=== PATIENT | male | born 1945 | race Caucasian/White ===

== ENCOUNTER 2021-07-08 11:51 | Observation (INO) | payer MEDICARE, OTHER, SELFPAY ==
[2021-07-08] VITALS (26 sets, daily range): BP systolic 88–147; BP diastolic 62–95; PULSE 70–107; RESP 9–18; TEMP 36.3–37.1; O2SAT 97–100; BMI 27.5
--- NOTE | 2021-07-08 12:04 | PC.NURSE ---
Pt was feeling dizzy earlier,denies pain or SOB
[2021-07-08 12:11] LABS: Add Manual Diff / Slide Review NO; Basophils Absolute Auto 100 /uL (0-100); Basophils Percent Auto 0.9 % (0-2); Eosinophils Absolute Auto 100 /uL (0-450); Eosinophils Percent Auto 1.5 % (2-4); Hematocrit 41.9 % (41-53); Hemoglobin 13.9 g/dL (13.5-17.5); Lymphocytes Absolute Auto 2000 /uL (1100-4500); Lymphocytes Percent Auto 21.3 % (25-40); Mean Corpuscular HGB Conc 33.2 % (30-36); Mean Corpuscular Hemoglobin 29.9 PG (26-34); Mean Corpuscular Volume 90.1 fL (80-100); Monocytes Absolute Auto 500 /uL (0-900); Monocytes Percent Auto 5.6 % (3-14); Neutrophils Absolute Auto 6700 /uL (1500-7000); Neutrophils Percent Auto 70.7 % (50-75); Platelet Count 332 X10^3/uL (150-400); Red Blood Cell Count 4.65 X10^6/uL (4.5-5.9); Red Cell Distribution Width 14.2 % (11.6-14.8); White Blood Cell Count 9.5 X10^3/uL (4.5-11.0)
[2021-07-08 12:19] LABS: PTT Partial Thromboplastin Tim 44 SECONDS (26.4-36.2)
[2021-07-08 12:22] LABS: Alanine Aminotransferase 29 IU/L (<50); Albumin 3.7 g/dL (3.5-5.0); Albumin Globulin Ratio 1.3 (1.0-2.8); Alkaline Phosphatase 124 U/L (38-126); Aspartate Aminotransferase 28 IU/L (17-59); BUN Creatinine Ratio 15.6 (6-22); Bilirubin Total 0.6 mg/dL (0.2-1.3); Blood Urea Nitrogen 19 mg/dL (9-20); Calcium 9.2 mg/dL (8.4-10.2); Carbon Dioxide 23 mmol/L (22-32); Chloride 109 mmol/L (98-107); Estimated Glomerular Filt Rate 57.8 mL/min (>60); Globulin 2.9 g/dL (1.7-4.1); Glucose 153 mg/dL (80-110); HEMOLYSIS < 15 (0-50); Potassium 4.2 mmol/L (3.4-5.1); Sodium 142 mmol/L (137-145); Total Protein 6.6 g/dL (6.3-8.2)
--- NOTE | 2021-07-08 12:30 | ED.GIBLEED ---
HPI - GI Bleed General Chief complaint: GI Bleed Stated complaint: GI Bleed Time Seen by Provider: 07/08/21 12:19 Source: patient Mode of arrival: EMS Limitations: no limitations History of Present Illness HPI Narrative: 76-year-old male. History of high blood pressure, atrial fibrillation and TIAs. Is on Pradaxa. Has here for evaluation of multiple episodes of black colored stools and bright red blood. Also having some abdominal discomfort. Some nausea. No vomiting. No prior abdominal surgeries. No urinary symptoms. No fevers. Has never had an abnormal colonoscopy in the past and he was told by the last individual who did his colonoscopy that he no longer needs to have them performed. Is feeling lightheaded. No chest pain. No shortness of breath. No palpitations. Related Data Home Medications Medication Instructions Recorded Confirmed aspirin 81 mg tablet 81 mg PO DAILY 07/08/21 07/08/21 dabigatran etexilate 150 mg 150 mg PO DAILY 07/08/21 07/08/21 capsule (Pradaxa) diltiazem HCl 240 mg 240 mg PO DAILY 07/08/21 07/08/21 capsule,extended release 24 hr losartan 50 mg tablet 50 mg PO DAILY 07/08/21 07/08/21 simvastatin 20 mg tablet 20 mg PO BEDTIME 07/08/21 07/08/21 Allergies Allergy/AdvReac Type Severity Reaction Status Date / Time lisinopril Allergy Verified 07/08/21 12:00 Review of Systems Constitutional Constitutional: Denies fever(s) and Denies headache(s) Eyes Eyes: Reports system reviewed and no additional complaints, except as documented ENT Ears, Nose, Mouth, and Throat: Denies headache(s) Cardiovascular Cardiovascular: Denies chest pain at rest and Denies rapid heart rate Respiratory Respiratory: Reports as per HPI Gastrointestinal Gastrointestinal: Reports as per HPI Genitourinary Genitourinary: Denies hematuria Musculoskeletal Musculoskeletal: Reports system reviewed and no additional complaints, except as documented Integumentary/Breasts Skin/Breast: Reports system reviewed and no additional complaints, except as documented Neurologic Neurologic: Denies headache(s) Psychiatric Psychiatric: Reports system reviewed and no additional complaints, except as documented Endocrine Endocrine: Reports system reviewed and no additional complaints, except as documented Hematologic/Lymphatic On Anticoagulants: Yes Allergic/Immunologic Allergic/Immunologic: Reports system reviewed and no additional complaints, except as documented Patient History Medical History Atrial fibrillation Hypertension TIA (transient ischemic attack) Surgical History History of tonsillectomy Family History Mother Cancer Father No pertinent past medical history Social History household members: spouse Smoking Status: Never smoker alcohol intake: former Smoking Status: Unknown if ever smoked alcohol intake frequency: other Substance Use Type: does not use Exam Initial Vital Signs Initial Vital Signs: Vital Signs Pulse Rate 107 H 07/08/21 11:54 Pulse Oximetry 99 07/08/21 11:54 Const General: cooperative, comfortable and ill appearing HENSC Head: normal to inspection Eyes General: appearance normal, both eyes and all related structures Resp Effort & Inspection: normal respiratory effort Auscultation: clear to auscultation bilaterally Cardio Rate: regular rate Rhythm: abnormal rhythm GI Inspection: normal to inspection and non-distended Palpation: No tender Back/Spine/Pelvis Back: normal to inspection Skin General: no rashes or lesions noted Neuro General: patient alert, patient awake, patient oriented x3 and moves all extremities Extrem General: normal to inspection Psych Appearance: grossly normal and well kempt Course Orders Ordered: ED Orders 07/08/21 12:00 Complete Blood Count AUTO DIFF Stat Comprehensive Metabolic Panel Stat Partial Thromboplastin Time Stat Type and Screen Stat 07/08/21 12:05 EKG-12 Lead Stat 07/08/21 12:44 COVID19 - ADMIT (SUGAR DRIER swab/PCR) Stat 07/08/21 14:11 Hemoglobin and Hematocrit Stat 07/08/21 14:41 Consult to General Surgery Stat Sodium Chloride (Normal Saline 0.9%) 1,000 mls @ 50 mls/hr IV CONT MICHEAL Last Admin: 07/08/21 16:54 Dose: 50 mls/hr Documented by: [email or web address] Morphine Sulfate (Morphine 4 Mg/Ml Inj) 4 mg IV Q4HR PRN PRN Reason: Pain, Severe (7-10) Naloxone HCl (Naloxone 0.4 Mg/Ml Vial) 0.2 mg IV Q2MIN PRN PRN Reason: Opiate Reversal Ondansetron HCl (Ondansetron 4 Mg/2 Ml Inj) 4 mg IV Q8HR PRN PRN Reason: Nausea And Vomiting Pantoprazole Sodium (Pantoprazole 40 Mg Vial) 40 mg IV BID MICHEAL Last Admin: 07/08/21 16:54 Dose: 40 mg Documented by: [email or web address] Discontinued Medications Sodium Chloride (Normal Saline 0.9%) 1,000 mls @ 1,000 mls/hr IV BOLUS ONE Stop: 07/08/21 13:33 Last Infusion: 07/08/21 13:48 Dose: 0 mls/hr Documented by: Admin: 07/08/21 12:38 Dose: 1,000 mls/hr Documented by: SIVA Vital Signs Vital signs: Vital Signs - 8 hr 07/08/21 11:54 07/08/21 11:55 07/08/21 12:00 Temperature 98.0 F Pulse Rate 107 H 100 H 99 H Pulse Rate [Orthostatic Standing] Respiratory Rate 17 13 Blood Pressure 111/69 Blood Pressure [Orthostatic Lying] Blood Pressure [Orthostatic Sitting] Blood Pressure [Orthostatic Standing] Pulse Oximetry 99 99 98 07/08/21 12:15 07/08/21 12:30 07/08/21 12:31 Temperature Pulse Rate 101 H 107 H 89 Pulse Rate [Orthostatic Standing] Respiratory Rate 12 14 Blood Pressure 88/62 L Blood Pressure [Orthostatic Lying] Blood Pressure [Orthostatic Sitting] Blood Pressure [Orthostatic Standing] Pulse Oximetry 99 97 07/08/21 12:35 07/08/21 12:45 07/08/21 12:46 Temperature Pulse Rate 84 84 Pulse Rate [Orthostatic Standing] Respiratory Rate 10 L 13 Blood Pressure 135/74 Blood Pressure [Orthostatic Lying] 88/62 L Blood Pressure [Orthostatic Sitting] Blood Pressure [Orthostatic Standing] Pulse Oximetry 98 98 07/08/21 12:58 07/08/21 13:00 07/08/21 13:01 Temperature Pulse Rate 86 92 H 96 H Pulse Rate [Orthostatic Standing] Respiratory Rate 14 17 Blood Pressure 119/77 110/64 107/63 Blood Pressure [Orthostatic Lying] Blood Pressure [Orthostatic Sitting] Blood Pressure [Orthostatic Standing] Pulse Oximetry 99 99 100 07/08/21 13:02 07/08/21 13:15 07/08/21 13:30 Temperature Pulse Rate 78 77 Pulse Rate [Orthostatic Standing] 78 Respiratory Rate 15 10 L Blood Pressure 122/70 118/73 Blood Pressure [Orthostatic Lying] 119/77 Blood Pressure [Orthostatic Sitting] 110/64 Blood Pressure [Orthostatic Standing] 107/63 Pulse Oximetry 99 98 07/08/21 13:45 07/08/21 14:00 07/08/21 14:15 Temperature Pulse Rate 74 79 79 Pulse Rate [Orthostatic Standing] Respiratory Rate 11 L 11 L 10 L Blood Pressure 121/65 115/71 122/74 Blood Pressure [Orthostatic Lying] Blood Pressure [Orthostatic Sitting] Blood Pressure [Orthostatic Standing] Pulse Oximetry 99 100 100 07/08/21 14:30 Temperature Pulse Rate 80 Pulse Rate [Orthostatic Standing] Respiratory Rate 9 L Blood Pressure 123/74 Blood Pressure [Orthostatic Lying] Blood Pressure [Orthostatic Sitting] Blood Pressure [Orthostatic Standing] Pulse Oximetry 100 MDM - GI Bleed Lab Data Attestation: I reviewed the patient's lab results. Result diagrams: 07/08/21 14:11 07/08/21 12:00 Labs: Lab Results 07/08/21 07/08/21 07/08/21 Range/Units 12:00 12:00 12:00 WBC 9.5 (4.5-11.0) X10^3/uL RBC 4.65 (4.5-5.9) X10^6/uL Hgb 13.9 (13.5-17.5) g/dL Hct 41.9 (41-53) % MCV 90.1 (80-100) fL MCH 29.9 (26-34) PG MCHC 33.2 (30-36) % RDW 14.2 (11.6-14.8) % Plt Count 332 (150-400) X10^3/uL Neut % (Auto) 70.7 (50-75) % Lymph % (Auto) 21.3 L (25-40) % [place] % (Auto) 5.6 (3-14) % Eos % (Auto) 1.5 L (2-4) % Baso % (Auto) 0.9 (0-2) % Neut # (Auto) 6700 (1926-3409) /uL Lymph # (Auto) 2000 (8240-6549) /uL [place] # (Auto) 500 (0-900) /uL Eos # (Auto) 100 (0-450) /uL Baso # (Auto) 100 (0-100) /uL APTT 44 H (26.4-36.2) SECONDS Sodium 142 (137-145) mmol/L Potassium 4.2 (3.4-5.1) mmol/L Chloride 109 H (98-107) mmol/L Carbon Dioxide 23 (22-32) mmol/L BUN 19 (9-20) mg/dL Creatinine 1.22 (0.66-1.25) mg/dL Estimated GFR 57.8 L (>60) mL/min BUN/Creatinine Ratio 15.6 (6-22) Glucose 153 H (80-110) mg/dL Calcium 9.2 (8.4-10.2) mg/dL Total Bilirubin 0.6 (0.2-1.3) mg/dL AST 28 (17-59) IU/L ALT 29 (<50) IU/L Alkaline Phosphatase 124 (38-126) U/L Total Protein 6.6 (6.3-8.2) g/dL Albumin 3.7 (3.5-5.0) g/dL Globulin 2.9 (1.7-4.1) g/dL Albumin/Globulin Ratio 1.3 (1.0-2.8) SARS-CoV-2 (PCR) (Negative) Blood Type Antibody Screen 07/08/21 07/08/21 07/08/21 Range/Units 12:00 12:44 14:11 WBC (4.5-11.0) X10^3/uL RBC (4.5-5.9) X10^6/uL Hgb 12.6 L (13.5-17.5) g/dL Hct 38.0 L (41-53) % MCV (80-100) fL MCH (26-34) PG MCHC (30-36) % RDW (11.6-14.8) % Plt Count (150-400) X10^3/uL Neut % (Auto) (50-75) % Lymph % (Auto) (25-40) % [place] % (Auto) (3-14) % Eos % (Auto) (2-4) % Baso % (Auto) (0-2) % Neut # (Auto) (4513-0301) /uL Lymph # (Auto) (6058-5181) /uL [place] # (Auto) (0-900) /uL Eos # (Auto) (0-450) /uL Baso # (Auto) (0-100) /uL APTT (26.4-36.2) SECONDS Sodium (137-145) mmol/L Potassium (3.4-5.1) mmol/L Chloride (98-107) mmol/L Carbon Dioxide (22-32) mmol/L BUN (9-20) mg/dL Creatinine (0.66-1.25) mg/dL Estimated GFR (>60) mL/min BUN/Creatinine Ratio (6-22) Glucose (80-110) mg/dL Calcium (8.4-10.2) mg/dL Total Bilirubin (0.2-1.3) mg/dL AST (17-59) IU/L ALT (<50) IU/L Alkaline Phosphatase (38-126) U/L Total Protein (6.3-8.2) g/dL Albumin (3.5-5.0) g/dL Globulin (1.7-4.1) g/dL Albumin/Globulin Ratio (1.0-2.8) SARS-CoV-2 (PCR) Negative (Negative) Blood Type O Positive Antibody Screen Negative Point of Care Testing Stool Occult Blood Positive ECG Data Attestation: I personally reviewed and interpreted this ECG as follows: Interpretation: Atrial fibrillation Ventricular rate 93 Left axis deviation Right bundle branch block No ST T wave changes MDM Narrative Medical decision making narrative: Patient was diaphoretic and looked poorly upon arrival. Had 1 blood pressure of a systolic less than 80 but this improved with fluids. Patient was in AFib but he has a history of AFib. Was tachycardic upon arrival. Received 1 L fluids and the patient felt better, blood pressure improved, diaphoresis improved. He was obviously having blood in his stool. H&H dropped slightly during his stay here in the ER. Given his presentation, his labs, vital signs patient does require admission the hospital for further evaluation and treatment. We will hold on any reversal of his Pradaxa for now. Discussed the case with Dr. Sands with General surgery who will see the patient as a consultation. Discussed the case with Dr. Madrid with internal medicine who will admit for further evaluation and treatment. Discussed the need for admission with the patient. He expressed understanding and agreement. Discharge Plan Departure Patient Disposition: Admitted as Observation Clinical Impression: Acute GI bleeding, Atrial fibrillation Admit Date/Time: 07/08/21 14:43 Admit Provider: Wilfredo Madrid
--- NOTE | 2021-07-08 12:35 | PC.NURSE ---
Pts bp decreased,pt diaphoretic. Dr Silver diaz.
[2021-07-08] MEDS: SODIUM CHLORIDE 0.9% 1,000 ML 1000 ML IV (12:38)
[2021-07-08 14:00] LABS: COVID19 - ADMIT (NP swab/PCR) Negative (Negative)
[2021-07-08 14:18] LABS: Hemoglobin 12.6 g/dL (13.5-17.5)
--- NOTE | 2021-07-08 15:35 | PC.NURSE ---
Report called to [facility] @[phone], still waiting on room.
--- NOTE | 2021-07-08 16:23 | P.HP_ITS ---
History of Present Illness History of Present Illness Date Patient Seen: 07/08/21 Time Patient Seen: 16:23 Chief complaint: GI Bleed Narrative: This is a 76-year-old male with a past medical history of hypertension, hyperlipidemia, paroxysmal AFib on Pradaxa, and 3 prior TIAs who presented to the emergency room via EMS after multiple melanotic movements. Patient states that he has had only minimal suprapubic type cramping abdominal pain that does not radiate, but denies any pain currently. He denies any nausea, vomiting, chest pain, shortness of breath. Upon arrival to the emergency room he states he felt mildly dizzy and slightly diaphoretic but this improved with fluids and treatments in the emergency room. He denies any recent fevers, chills. His last colonoscopy he thinks was a couple of years ago, he does not recall the results. He was prepping for a colonoscopy approximately a year ago he states when he had a TIA. His doctor after that TIA stated that he no longer needed any additional colonoscopies. He has never had an EGD. He denies any bleeding in the past. His last dose of Pradaxa was yesterday morning. In the emergency room, the patient was mildly hypertensive but the remainder of his vital signs were unremarkable. Initial hemoglobin was 13.9 and dropped to 12.6 a few hours later, although this was notably after some IV fluids were given. His creatinine was 1.22, but there is no known baseline. The remainder of his chemistry panel was unremarkable. COVID-19 testing was negative. Patient was typed and screened. General surgery was contacted in the emergency room and Dr. Sands agreed to consultation. Patient will be NPO pending surgical evaluation. His Pradaxa was held. Admitted to Medicine under observat ion status. Patient History Medical History Atrial fibrillation Hypertension TIA (transient ischemic attack) Surgical History History of tonsillectomy Family & Social History Family History Mother Cancer Father No pertinent past medical history Safety & Behavioral: Feels Safe in Current Yes Environment Been Physically Hurt or No Threatened By a Person Tobacco & Substance use: Smoking Status Unknown if ever smoked alcohol intake frequency other Substance Use Type does not use Meds Home Medications and Allergies Home Medications Medication Instructions Recorded Confirmed Type aspirin 81 mg tablet 81 mg PO DAILY 07/08/21 07/08/21 History dabigatran etexilate 150 mg 150 mg PO DAILY 07/08/21 07/08/21 History capsule (Pradaxa) diltiazem HCl 240 mg 240 mg PO DAILY 07/08/21 07/08/21 History capsule,extended release 24 hr losartan 50 mg tablet 50 mg PO DAILY 07/08/21 07/08/21 History simvastatin 20 mg tablet 20 mg PO BEDTIME 07/08/21 07/08/21 History Allergies Allergy/AdvReac Type Severity Reaction Status Date / Time lisinopril Allergy Verified 07/08/21 12:00 Review of Systems Review of Systems Narrative: All other systems reviewed with the patient and are negative unless otherwise stated. Exam Vital Signs (past 8 hours): - 07/08/21 11:54 07/08/21 11:55 07/08/21 12:00 Temperature 98.0 F Pulse Rate 107 H 100 H 99 H Pulse Rate [Orthostatic Standing] Respiratory Rate 17 13 Blood Pressure 111/69 Blood Pressure [Orthostatic Lying] Blood Pressure [Orthostatic Sitting] Blood Pressure [Orthostatic Standing] Pulse Oximetry 99 99 98 07/08/21 12:15 07/08/21 12:30 07/08/21 12:31 Temperature Pulse Rate 101 H 107 H 89 Pulse Rate [Orthostatic Standing] Respiratory Rate 12 14 Blood Pressure 88/62 L Blood Pressure [Orthostatic Lying] Blood Pressure [Orthostatic Sitting] Blood Pressure [Orthostatic Standing] Pulse Oximetry 99 97 07/08/21 12:35 07/08/21 12:45 07/08/21 12:46 Temperature Pulse Rate 84 84 Pulse Rate [Orthostatic Standing] Respiratory Rate 10 L 13 Blood Pressure 135/74 Blood Pressure [Orthostatic Lying] 88/62 L Blood Pressure [Orthostatic Sitting] Blood Pressure [Orthostatic Standing] Pulse Oximetry 98 98 07/08/21 12:58 07/08/21 13:00 07/08/21 13:01 Temperature Pulse Rate 86 92 H 96 H Pulse Rate [Orthostatic Standing] Respiratory Rate 14 17 Blood Pressure 119/77 110/64 107/63 Blood Pressure [Orthostatic Lying] Blood Pressure [Orthostatic Sitting] Blood Pressure [Orthostatic Standing] Pulse Oximetry 99 99 100 07/08/21 13:02 07/08/21 13:15 07/08/21 13:30 Temperature Pulse Rate 78 77 Pulse Rate [Orthostatic Standing] 78 Respiratory Rate 15 10 L Blood Pressure 122/70 118/73 Blood Pressure [Orthostatic Lying] 119/77 Blood Pressure [Orthostatic Sitting] 110/64 Blood Pressure [Orthostatic Standing] 107/63 Pulse Oximetry 99 98 07/08/21 13:45 07/08/21 14:00 07/08/21 14:15 Temperature Pulse Rate 74 79 79 Pulse Rate [Orthostatic Standing] Respiratory Rate 11 L 11 L 10 L Blood Pressure 121/65 115/71 122/74 Blood Pressure [Orthostatic Lying] Blood Pressure [Orthostatic Sitting] Blood Pressure [Orthostatic Standing] Pulse Oximetry 99 100 100 07/08/21 14:30 07/08/21 14:45 07/08/21 15:00 Temperature Pulse Rate 80 70 77 Pulse Rate [Orthostatic Standing] Respiratory Rate 9 L 9 L 10 L Blood Pressure 123/74 113/69 122/72 Blood Pressure [Orthostatic Lying] Blood Pressure [Orthostatic Sitting] Blood Pressure [Orthostatic Standing] Pulse Oximetry 100 100 98 07/08/21 15:15 07/08/21 16:00 Temperature 97.4 F L Pulse Rate 76 86 Pulse Rate [Orthostatic Standing] Respiratory Rate 10 L 18 Blood Pressure 115/76 147/95 H Blood Pressure [Orthostatic Lying] Blood Pressure [Orthostatic Sitting] Blood Pressure [Orthostatic Standing] Pulse Oximetry 99 100 Oxygen Delivery Method Room Air Narrative Exam Narrative: GENERAL APPEARANCE: Well developed, well nourished, in no acute distress. SKIN: Inspection of the skin reveals no rashes, ulcerations or petechiae. HEENT: Normocephalic atraumatic, extraocular muscles are intact, oropharynx is clear and mucous membranes are moist, neck is supple without adenopathy NECK: Supple and symmetric. There was no thyroid enlargement, and no tenderness, or masses were felt. CHEST: Normal AP diameter and normal contour without any kyphoscoliosis. LUNGS: Auscultation of the lungs revealed no wheezes, rhonchi, or rales. CARDIOVASCULAR: There was a regular rate and rhythm without any murmurs, gallops, rubs. Peripheral pulses were 2+ and symmetric. ABDOMEN: Soft and nontender with normal bowel sounds. No ascites was noted. MUSCULOSKELETAL: There was no tenderness or effusions noted. Muscle strength and tone were normal. EXTREMITIES: No cyanosis, clubbing or edema. NEUROLOGIC: Alert and oriented x 3. Normal affect. Gait was normal. Strength is +5/5 in the Upper Extremities and Lower Extremities Bilaterally. Sensation to touch was normal. Objective Labs Result Diagrams: 07/08/21 14:11 07/08/21 12:00 Labs: Laboratory Results - last 24 hr 07/08/21 07/08/21 07/08/21 12:00 12:00 12:00 WBC 9.5 RBC 4.65 Hgb 13.9 Hct 41.9 MCV 90.1 MCH 29.9 MCHC 33.2 RDW 14.2 Plt Count 332 Neut % (Auto) 70.7 Lymph % (Auto) 21.3 L [place] % (Auto) 5.6 Eos % (Auto) 1.5 L Baso % (Auto) 0.9 Neut # (Auto) 6700 Lymph # (Auto) 2000 [place] # (Auto) 500 Eos # (Auto) 100 Baso # (Auto) 100 APTT 44 H Sodium 142 Potassium 4.2 Chloride 109 H Carbon Dioxide 23 BUN 19 Creatinine 1.22 Estimated GFR 57.8 L BUN/Creatinine Ratio 15.6 Glucose 153 H Calcium 9.2 Total Bilirubin 0.6 AST 28 ALT 29 Alkaline Phosphatase 124 Total Protein 6.6 Albumin 3.7 Globulin 2.9 Albumin/Globulin Ratio 1.3 SARS-CoV-2 (PCR) Blood Type Antibody Screen 07/08/21 07/08/21 07/08/21 12:00 12:44 14:11 WBC RBC Hgb 12.6 L Hct 38.0 L MCV MCH MCHC RDW Plt Count Neut % (Auto) Lymph % (Auto) [place] % (Auto) Eos % (Auto) Baso % (Auto) Neut # (Auto) Lymph # (Auto) [place] # (Auto) Eos # (Auto) Baso # (Auto) APTT Sodium Potassium Chloride Carbon Dioxide BUN Creatinine Estimated GFR BUN/Creatinine Ratio Glucose Calcium Total Bilirubin AST ALT Alkaline Phosphatase Total Protein Albumin Globulin Albumin/Globulin Ratio SARS-CoV-2 (PCR) Negative Blood Type O Positive Antibody Screen Negative Assessment & Plan Assessment & Plan narrative: This is a 76-year-old male with a past medical history of hypertension, hyperlipidemia, paroxysmal AFib on Pradaxa, and 3 prior TIAs who presented to the emergency room via EMS after multiple melanotic movements. Admitted for Gi bleeding. 1. Acute blood loss anemia secondary to GI bleeding with melena, present on admission - NPO pending surgical evaluation. continue IVF. Hg from 13.9 to 12.6 on repeat. normal MCV. - continue to follow h/h - start IV PPI BID, Given melena unclear if upper or lower bleeding. BUN is normal. - Dr. Sands of General Surgery consulted via the ER. 2. presumed paroxysmal atrial fibrillation - will check EKG, no current chest pain or shortness of breath. - Tele ordered given need to hold PO home medications. Can give IV dilt if RVR. 3. HTN, chronic - hold home medications currently of active bleeding. 4. HLD, chronic - hold statin. 5. history of multiple TIA - held pradaxa, statin, as asa given bleeding for now. code: Full as discussed with the patient, surrogate decision maker he states is his . dispo: Admit under observation pending Hg trend. DVT: SCDs given bleeding. hold home asa and pradaxa. I have utilized all available immediate resources to obtain, update, or review the patient's current medications. COVID-19 COVID-19 status: Negative Quality VTE Deep Vein Thrombosis/Pulmonary Embolism Present on Admission: No MIPS - Admit I confirm the patient?s Advance Care Plan is present, Code status is documented, Surrogate decision maker is in patient?s record [If Yes, STOP here]: Yes
[2021-07-08] MEDS: PANTOPRAZOLE 40 MG VIAL IV ×2 (16:54→20:56)
[2021-07-08] MEDS: SODIUM CHLORIDE 0.9% 1,000 ML 50 ML IV (16:54)
[2021-07-08 20:12] LABS: Hematocrit 37.3 % (41-53); Hemoglobin 12.3 g/dL (13.5-17.5)
[2021-07-09 00:30] VITALS: O2SAT 98
[2021-07-09 00:38] VITALS: BP 140/91; PULSE 69; RESP 17; TEMP 36.5; O2SAT 98
[2021-07-09 05:40] VITALS: BP 150/92; PULSE 81; RESP 18; TEMP 36.7; O2SAT 98
[2021-07-09 06:30] LABS: Add Manual Diff / Slide Review NO; Basophils Absolute Auto 100 /uL (0-100); Basophils Percent Auto 1.1 % (0-2); Eosinophils Absolute Auto 200 /uL (0-450); Eosinophils Percent Auto 1.7 % (2-4); Hemoglobin 12.6 g/dL (13.5-17.5); Lymphocytes Absolute Auto 3400 /uL (1100-4500); Lymphocytes Percent Auto 33.8 % (25-40); Mean Corpuscular HGB Conc 33.1 % (30-36); Mean Corpuscular Hemoglobin 29.6 PG (26-34); Mean Corpuscular Volume 89.5 fL (80-100); Monocytes Absolute Auto 600 /uL (0-900); Monocytes Percent Auto 5.6 % (3-14); Neutrophils Absolute Auto 5800 /uL (1500-7000); Neutrophils Percent Auto 57.8 % (50-75); Platelet Count 314 X10^3/uL (150-400); Red Blood Cell Count 4.24 X10^6/uL (4.5-5.9); White Blood Cell Count 10.1 X10^3/uL (4.5-11.0)
[2021-07-09 06:46] LABS: BUN Creatinine Ratio 18.6 (6-22); Blood Urea Nitrogen 19 mg/dL (9-20); Calcium 8.8 mg/dL (8.4-10.2); Carbon Dioxide 25 mmol/L (22-32); Chloride 110 mmol/L (98-107); Estimated Glomerular Filt Rate > 60.0 mL/min (>60); Glucose 97 mg/dL (80-110); HEMOLYSIS < 15 (0-50); Sodium 141 mmol/L (137-145)
[2021-07-09 08:37] VITALS: BP 143/96; PULSE 84; RESP 16; TEMP 36.3; O2SAT 98
--- NOTE | 2021-07-09 08:53 | P.DS_ITS ---
History of Present Illness History of Present Illness Chief complaint: GI Bleed Narrative: This is a 76-year-old male with a past medical history of hypertension, hyperlipidemia, paroxysmal AFib on Pradaxa, and 3 prior TIAs who presented to the emergency room via EMS after multiple melanotic movements. Patient states that he has had only minimal suprapubic type cramping abdominal pain that does not radiate, but denies any pain currently. He denies any nausea, vomiting, chest pain, shortness of breath. Upon arrival to the emergency room he states he felt mildly dizzy and slightly diaphoretic but this improved with fluids and treatments in the emergency room. He denies any recent fevers, chills. His last colonoscopy he thinks was a couple of years ago, he does not recall the results. He was prepping for a colonoscopy approximately a year ago he states when he had a TIA. His doctor after that TIA stated that he no longer needed any additional colonoscopies. He has never had an EGD. He denies any bleeding in the past. His last dose of Pradaxa was yesterday morning. In the emergency room, the patient was mildly hypertensive but the remainder of his vital signs were unremarkable. Initial hemoglobin was 13.9 and dropped to 12.6 a few hours later, although this was notably after some IV fluids were given. His creatinine was 1.22, but there is no known baseline. The remainder of his chemistry panel was unremarkable. COVID-19 testing was negative. Patient was typed and screened. General surgery was contacted in the emergency room and Dr. Sands agreed to consultation. Patient will be NPO pending surgical evaluation. His Pradaxa was held. Admitted to Medicine under observation status. Discharge Providers Provider Date of admission: 07/08/21 14:43 Discharge Date: 07/09/21 Primary care physician: Joel López MD Consults: 07/08/21 14:41 Consult to General Surgery Stat Comment: Consulting Provider: Chayito Sands Reason for consultation: GI bleed Has provider been notified: Yes Discharge provider: Constance Webb MD Summary Hospital Course Discharge Diagnosis: 1. Lower GI Bleed on Pradaxa-H/H stable , 12/38.6, As patient on Pradaxa need to wait 2 days before procedure, Patient will discharge home and return for C-scope 2. History of TIA 3. Hypertension 4. Atrial Fibrillation Hospital Course: Patient admitted for rectal bleeding. He had no further bleeding after admission. Patient had no melena or hemetesis. He was having some gas. He had no complaints of abdominal pain, shortness of breath, or nausea. Patient was notified that given his stable H/H and no further blood loss that the colonoscopy would be deferred until another 48 hours off the Pradaxa. Patient was agreeable and will discharge home. Patient was seen by Dr. Sands who will arrange for outpatient colonoscopy to occur either Wednesday. Patient was deemed appropriate for discharge home. Status at Discharge Cognitive/behavioral status at discharge: oriented Functional status at discharge: independent ambulation Overall status at discharge: patient is back to baseline Exam Vital Signs (past 8 hours): - 07/09/21 05:40 07/09/21 08:37 Temperature 98.1 F 97.4 F L Pulse Rate 81 84 Respiratory Rate 18 16 Blood Pressure 150/92 H 143/96 H Pulse Oximetry 98 98 Oxygen Delivery Method Room Air Oxygen Flow Rate 0 Narrative Exam Narrative: pleasant gentleman in no acute distress Resp Other: Lungs: clear to ausculation Cardio Other: Irregularly Irregular, nl Sl S2 2/6 HERACLIO GI Other: Abd: soft/ non tender/ non distended Objective Labs Result Diagrams: 07/09/21 05:42 07/09/21 05:42 Labs: Laboratory Results - last 24 hr 07/08/21 07/08/21 07/08/21 12:00 12:00 12:00 WBC 9.5 RBC 4.65 Hgb 13.9 Hct 41.9 MCV 90.1 MCH 29.9 MCHC 33.2 RDW 14.2 Plt Count 332 Neut % (Auto) 70.7 Lymph % (Auto) 21.3 L [place] % (Auto) 5.6 Eos % (Auto) 1.5 L Baso % (Auto) 0.9 Neut # (Auto) 6700 Lymph # (Auto) 2000 [place] # (Auto) 500 Eos # (Auto) 100 Baso # (Auto) 100 APTT 44 H Sodium 142 Potassium 4.2 Chloride 109 H Carbon Dioxide 23 BUN 19 Creatinine 1.22 Estimated GFR 57.8 L BUN/Creatinine Ratio 15.6 Glucose 153 H Calcium 9.2 Total Bilirubin 0.6 AST 28 ALT 29 Alkaline Phosphatase 124 Total Protein 6.6 Albumin 3.7 Globulin 2.9 Albumin/Globulin Ratio 1.3 SARS-CoV-2 (PCR) Blood Type Antibody Screen 07/08/21 07/08/21 07/08/21 12:00 12:44 14:11 WBC RBC Hgb 12.6 L Hct 38.0 L MCV MCH MCHC RDW Plt Count Neut % (Auto) Lymph % (Auto) [place] % (Auto) Eos % (Auto) Baso % (Auto) Neut # (Auto) Lymph # (Auto) [place] # (Auto) Eos # (Auto) Baso # (Auto) APTT Sodium Potassium Chloride Carbon Dioxide BUN Creatinine Estimated GFR BUN/Creatinine Ratio Glucose Calcium Total Bilirubin AST ALT Alkaline Phosphatase Total Protein Albumin Globulin Albumin/Globulin Ratio SARS-CoV-2 (PCR) Negative Blood Type O Positive Antibody Screen Negative 07/08/21 07/09/21 07/09/21 19:49 05:42 05:42 WBC 10.1 RBC 4.24 L Hgb 12.3 L 12.6 L Hct 37.3 L 38.0 L MCV 89.5 MCH 29.6 MCHC 33.1 RDW 14.0 Plt Count 314 Neut % (Auto) 57.8 Lymph % (Auto) 33.8 [place] % (Auto) 5.6 Eos % (Auto) 1.7 L Baso % (Auto) 1.1 Neut # (Auto) 5800 Lymph # (Auto) 3400 [place] # (Auto) 600 Eos # (Auto) 200 Baso # (Auto) 100 APTT Sodium 141 Potassium 4.0 Chloride 110 H Carbon Dioxide 25 BUN 19 Creatinine 1.02 Estimated GFR > 60.0 BUN/Creatinine Ratio 18.6 Glucose 97 Calcium 8.8 Total Bilirubin AST ALT Alkaline Phosphatase Total Protein Albumin Globulin Albumin/Globulin Ratio SARS-CoV-2 (PCR) Blood Type Antibody Screen [facility] Medical History Atrial fibrillation Hypertension TIA (transient ischemic attack) Surgical History History of tonsillectomy Family History Mother Cancer Father No pertinent past medical history Social History household members: spouse Smoking Status: Never smoker alcohol intake: former Discharge Assessment & Plan Assessment and Plan Assessment: Lower GI Bleed on Pradaxa Atrial Fibrillation Hypertension History of TIA Plan of Treatment: Discharge home today. Hold Pradaxa until Colonoscopy Dr. Sands to arrange outpatient Colonoscopy. Discharge Plan Discharge Plan Patient Disposition: Home Provider Discharge Comment: hold pradaxa and aspirin until colonoscopy next week Nursing Discharge Comment: Follow instruction sheets given to you by Dr. Sandss office. Your colonoscopy has been schedule for 07/14/21 with an estimated check in time of 12:00pm. The surgical department will call you the day before to confirm arrival time. Follow instructions for your covid test 07/11/21. If you have any questions call [facility] [phone]. Discharge orders & Medications Prescriptions: Continued losartan 50 mg tablet 50 mg PO DAILY RF: 0 diltiazem HCl 240 mg capsule,extended release 24hr 240 mg PO DAILY RF: 0 simvastatin 20 mg tablet 20 mg PO BEDTIME RF: 0 Discontinued aspirin 81 mg Tablet 81 mg PO DAILY RF: 0 Pradaxa 150 mg capsule 150 mg PO DAILY RF: 0 Follow up/Referrals: Joel López MD [Primary Care Provider] - Visit Report/Discharge Packet Instructions: Colonoscopy, Gastrointestinal Bleeding Discharge Data Primary Care Provider: Jole López Attending Provider: Wilfredo Madrid VTE Deep Vein Thrombosis/Pulmonary Embolism Present on Admission: No
[2021-07-09] MEDS: PANTOPRAZOLE 40 MG VIAL IV (08:57)
--- NOTE | 2021-07-09 09:12 | PM.CN ---
History of Present Illness Consult details Date Patient Seen: 07/09/21 Time Patient Seen: 09:12 Chief complaint: GI Bleed Reason for consult: GI bleed with melonic stools Requesting provider: Constance Webb Narrative: Admitted over night for new onset blood in stool, large maroon stools at home. None here. On Pradaxa which he last took Wednesday. Pradaxa is for Afib. No abdominal pain, no previous episodes. Stable over night. Meds Home Medications and Allergies Home Medications Medication Instructions Recorded Confirmed Type aspirin 81 mg tablet 81 mg PO DAILY 07/08/21 07/08/21 History dabigatran etexilate 150 mg 150 mg PO DAILY 07/08/21 07/08/21 History capsule (Pradaxa) diltiazem HCl 240 mg 240 mg PO DAILY 07/08/21 07/08/21 History capsule,extended release 24 hr losartan 50 mg tablet 50 mg PO DAILY 07/08/21 07/08/21 History simvastatin 20 mg tablet 20 mg PO BEDTIME 07/08/21 07/08/21 History Allergies Allergy/AdvReac Type Severity Reaction Status Date / Time lisinopril Allergy Verified 07/08/21 12:00 Review of Systems Review of Systems ROS: Yes All systems reviewed with the patient and are negative except as otherwise documented Exam Vital Signs (past 8 hours): - 07/09/21 05:40 07/09/21 08:37 Temperature 98.1 F 97.4 F L Pulse Rate 81 84 Respiratory Rate 18 16 Blood Pressure 150/92 H 143/96 H Pulse Oximetry 98 98 Oxygen Delivery Method Room Air Oxygen Flow Rate 0 Const General: cooperative and healthy appearing Nutritional Appearance: average body habitus Orientation: alert and oriented x3 HENMT Head: normal to inspection, normocephalic and atraumatic Eyes Sclera: sclerae normal Neck Neck: trachea midline Chest Chest: normal inspection of the chest Resp Effort & Inspection: normal respiratory effort and able to speak in complete sentences Cardio Rate: regular rate Rhythm: abnormal rhythm GI Inspection: normal to inspection Palpation: soft Skin Other: scarring of nose presumed from skin cancer. Neuro General: patient alert and patient oriented x3 Psych Appearance: grossly normal Judgment: judgment good Objective Labs Result Diagrams: 07/09/21 05:42 07/09/21 05:42 Labs: Laboratory Results - last 24 hr 0807/08/21 07/08/21 12:00 12:00 12:00 WBC 9.5 RBC 4.65 Hgb 13.9 Hct 41.9 MCV 90.1 MCH 29.9 MCHC 33.2 RDW 14.2 Plt Count 332 Neut % (Auto) 70.7 Lymph % (Auto) 21.3 L [place] % (Auto) 5.6 Eos % (Auto) 1.5 L Baso % (Auto) 0.9 Neut # (Auto) 6700 Lymph # (Auto) 2000 [place] # (Auto) 500 Eos # (Auto) 100 Baso # (Auto) 100 APTT 44 H Sodium 142 Potassium 4.2 Chloride 109 H Carbon Dioxide 23 BUN 19 Creatinine 1.22 Estimated GFR 57.8 L BUN/Creatinine Ratio 15.6 Glucose 153 H Calcium 9.2 Total Bilirubin 0.6 AST 28 ALT 29 Alkaline Phosphatase 124 Total Protein 6.6 Albumin 3.7 Globulin 2.9 Albumin/Globulin Ratio 1.3 SARS-CoV-2 (PCR) Blood Type Antibody Screen 07/08/21 07/08/21 07/08/21 12:00 12:44 14:11 WBC RBC Hgb 12.6 L Hct 38.0 L MCV MCH MCHC RDW Plt Count Neut % (Auto) Lymph % (Auto) [place] % (Auto) Eos % (Auto) Baso % (Auto) Neut # (Auto) Lymph # (Auto) [place] # (Auto) Eos # (Auto) Baso # (Auto) APTT Sodium Potassium Chloride Carbon Dioxide BUN Creatinine Estimated GFR BUN/Creatinine Ratio Glucose Calcium Total Bilirubin AST ALT Alkaline Phosphatase Total Protein Albumin Globulin Albumin/Globulin Ratio SARS-CoV-2 (PCR) Negative Blood Type O Positive Antibody Screen Negative 07/08/21 07/09/21 07/09/21 19:49 05:42 05:42 WBC 10.1 RBC 4.24 L Hgb 12.3 L 12.6 L Hct 37.3 L 38.0 L MCV 89.5 MCH 29.6 MCHC 33.1 RDW 14.0 Plt Count 314 Neut % (Auto) 57.8 Lymph % (Auto) 33.8 [place] % (Auto) 5.6 Eos % (Auto) 1.7 L Baso % (Auto) 1.1 Neut # (Auto) 5800 Lymph # (Auto) 3400 [place] # (Auto) 600 Eos # (Auto) 200 Baso # (Auto) 100 APTT Sodium 141 Potassium 4.0 Chloride 110 H Carbon Dioxide 25 BUN 19 Creatinine 1.02 Estimated GFR > 60.0 BUN/Creatinine Ratio 18.6 Glucose 97 Calcium 8.8 Total Bilirubin AST ALT Alkaline Phosphatase Total Protein Albumin Globulin Albumin/Globulin Ratio SARS-CoV-2 (PCR) Blood Type Antibody Screen Assessment & Plan Assessment & Plan narrative: Patient is stable clinically. No further bleeding. Given the need for delay due to Pradaxa, he will go home and return for colonoscopy, EGD on Wednesday. COVID-19 COVID-19 status: Negative Time Spent With Patient Time with patient: 15-24 minutes
--- NOTE | 2021-07-09 10:48 | CM.DANOTE ---
Patient is a 76 yo male who was admitted on 07/08/21 for GI Bleed. Pt has [employer] for insurance and his PCP is Dr. Joel López. EMR was reviewed. Per MD, pt with hx of 3 TIAs and now admitted for GI Bleed and is NPO awaiting Surgeon Consult. Per Surgeon, pt to have colonoscopy but can happen outpt and pt to d/c home today with prep for colonoscopy in 2 days as an outpt. SW met bedside with pt and RN present and confirm that pt resides in [facility] now and is retired and independent at baseline with ADLs and spouse able to provide transport home today. Pt states his spouse is his DPOA and no hx of HH or SNF. Pt states he used to live in [place] with his mother as he was her primary CG but since his mom he and his moved to [facility] but they [facility] and his dentist is still in [place] where they used to live. Pt agreeable with outpt colonoscopy and d/c home today. No concerns at this time. Plan: SW to follow for plan of pt d/c home today via spouse POV and outpt colonoscopy scheduled with Surgeon in 2 days. 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 Yes Advance Directives on File No History Provided By Patient,Medical Record Has Patient been admitted in last 30 No days? Prior Living Arrangements House Household Members spouse Type of transporation used prior to Drives own vehicle admit Independent with ADL's Yes Is patient alert and oriented? Yes Caregiver for Another No Barriers to Discharge No Discharge Plan Home Transportation Arrangement Spouse able to transport home today Referrals Initiated None needed Whiteboard Updated in Patient Room with Yes name and ext. # of Electrical Unit Rebuilder Review Status In Process Please Provide Date Initial DC 07/09/21 Assessment Was Performed Next Review Type Continued Stay Review
--- NOTE | 2021-07-09 13:14 | PC.NURSE ---
Discharge: Pt feels ready to d/c to home. Received instructions from MD's office for up coming colonoscopy. Understands he needs to hold his anticoagulants until colonoscopy completed. Reviewed discharge packets. Has had no loose or bloody stools. Questions answered. Pt d/c home via auto with spouse.
--- NOTE | 2021-07-16 14:20 | PC.NURSE ---
Late Entry; NS infusion initiated 07/08 at 16:54, stopped by discharge order 07/09 at 10:44.
== END 2021-07-09 12:05 | disposition home or self-care (01) ==
LOC: ED 14:42 → AC 14:44
PROVIDERS: Admitting Provider Internal Medicine; Emergency Provider Emergency Medicine; PCP Family Medicine; Referring Provider Emergency Medicine; Visit Provider Internal Medicine
DX: K92.1 Melena (principal); D62 Acute posthemorrhagic anemia; I48.0 Paroxysmal atrial fibrillation; Z79.01 Long term (current) use of anticoagulants; Z79.82 Long term (current) use of aspirin; I10 Essential (primary) hypertension; E78.5 Hyperlipidemia, unspecified; Z86.73 Personal history of transient ischemic attack (TIA), and cerebral infarction without residual deficits; Z20.822 Contact with and (suspected) exposure to COVID-19
CPT/HCPCS: 36415; 80048; 80053; 82272; 85014; 85018; 85025; 85730; 86850; 86900; 86901; 87635; 93005; 96361; 96374; 96376; 99224; 99284; C9803; G0378; C9113

== ENCOUNTER → 2021-07-11 15:55 | Outpatient (CLI) | payer MEDICARE, OTHER, SELFPAY ==
[2021-07-08 17:00] VITALS: BMI 27.5
[2021-07-11 16:45] LABS: COVID19 -Nasal RAPID Negative (Negative)
== END ==
PROVIDERS: PCP Family Medicine; Visit Provider Surgery
DX: Z01.812 Encounter for preprocedural laboratory examination (principal); Z20.822 Contact with and (suspected) exposure to COVID-19
CPT/HCPCS: 87635; C9803

== ENCOUNTER 2021-07-14 11:55 | Day surgery (SDC) | payer MEDICARE, OTHER, SELFPAY ==
[2021-07-08 17:00] VITALS: BMI 27.5
[2021-07-14] VITALS (11 sets, daily range): BP systolic 86–140; BP diastolic 51–90; PULSE 60–101; RESP 12–16; TEMP 36.3–36.6; O2SAT 92–99; BMI 25.8
--- NOTE | 2021-07-14 | PATH_ITS ---
[facility] Accession Number: [id number] . 01 Material submitted: . stomach - STOMACH BIOPSY . 01 Clinical history: . STOMACH BIOPSY FOR H.PYLORI . 02 Diagnosis: Stomach, Biopsy: Gastric antral mucosa with no diagnostic abnormality. No evidence of Helicobacter organisms on H/E stain. Negative for intestinal metaplasia. Negative for dysplasia and malignancy. MRV 07/16/2021 1003 Local . 02 Electronically signed: . Rigoberto Huerta MD, PhD, Pathologist NPI- [id number] . 01 Gross description: . STOMACH BIOPSY: Received in formalin is 1 fragment(s) of lawrence, soft tissue measuring 0.3 x 0.2 x 0.2 cm submitted entirely in 1 cassette(s) /SHANA 07/15/2021 0333 Local . 02 Pathologist provided ICD-10: K92.2 . 02 CPT . 776674 Performed at: 01 [facility] [address] [place] [address], [place], [place] [id number] MD Will Barragan MD Phone: [phone] Performed at: 02 [facility] [address] [place], [place] [id number] MD Karlee Pink MD Phone: [phone]
[2021-07-14] MEDS: LACTATED RINGERS 1,000 ML 42 ML IV (12:33)
--- NOTE | 2021-07-14 13:45 | PM.PREOP ---
Pre-operative Note COVID-19 COVID-19 status: Negative Interval Note History & Physical reviewed/Exam performed by Physician: Yes Changes to H&P: No ASA Class (for procedural sedation): II
--- NOTE | 2021-07-14 13:48 | PM.OP.ENDO ---
Operative Date/Time/Diagnoses Date of procedure: 07/14/21 Time of procedure: 13:48 Pre-op diagnosis: GI bleed Post-op diagnosis: same Procedure & Clinicians Study performed: EGD Same procedure as scheduled: Yes Indications: gi bleed Surgeon: Chayito Sands Procedure Notes SCOAP/Timeout: done Procedure in detail: Prep diagnosis: GI bleed with dark stool, on anticoagulation Postop diagnosis: Same Operative procedure: EGD with anesthetic, moderate sedation. Cold forceps biopsy Indications: Patient was admitted last week with 1 episode of dark stool and lightheadedness. He did not require transfusion and in fact his bleeding did not persist or recur. He has been off his anticoagulation since that time for colonoscopy EGD today. Surgeon: Annette Sands MD Findings: Antral gastritis, otherwise normal upper endoscopy with the exception of a small hiatal hernia. Anesthetic fentanyl and Versed, see nursing notes for dosing Procedure: Patient placed in lateral position. Lidocaine gargle was given. IV inserted the scope into the esophagus and advanced into the stomach. With insufflation identified the pylorus and into the duodenum. Insufflation extraction the scope and the above findings. First 2nd 3rd portion duodenum were normal. Mild gastritis in the antrum no erosion or ulceration. Cold forceps biopsy taken for H pylori Retroflex showed hiatal hernia, extraction revealed it to be small. Esophagus was within normal limits. Impression: Mild gastritis after a week of PPI treatment. Cold forceps biopsy taken for H pylori Plan: Restart anticoagulation, continue PPI b.i.d.. Follow-up with PCP for results of H pylori, continue forward with colonoscopy today Findings: gastritis Specimen(s): other (antral biopsy for H pylori) Complications: none Impression: mild gastritis after 5 days of PPI BID Post-procedure Plan for aftercare: Follow up PCP Follow up: weeks Disposition: PACU
[2021-07-14] MEDS: LIDOCAINE 4% SOLN 50 ML 20 ML TOP (13:50)
[2021-07-14] MEDS: fentaNYL 250 MCG/5 ML INJ IV (14:19)
[2021-07-14] MEDS: MIDAZOLAM 5 MG/5 ML VIAL IV (14:19)
[2021-07-14] MEDS: SODIUM CHLORIDE 0.9% 1,000 ML 84 ML IV (14:34)
--- NOTE | 2021-07-14 14:39 | P.OP.ENDO_ITS ---
Operative Date/Time/Diagnoses Date of procedure: 07/14/21 Time of procedure: 14:40 Pre-op diagnosis: GI bleed Post-op diagnosis: same Procedure & Clinicians Study performed: Colonoscopy with moderate sedation Same procedure as scheduled: Yes Indications: GI bleed Surgeon: Chayito Sands Procedure Notes SCOAP/Timeout: Done Procedure in detail: Prep diagnosis: GI bleed Postop diagnosis: Same Indications: GI bleed with 1 episode of dark stools. Patient anticoagulated for atrial fibrillation. Today has been off anticoagulation for 4 days and has received b.i.d. PPI for 4 days as well. Surgeon: Annette Sands MD Anesthetic: Fentanyl 200 micro g, Versed 7 mg Findings: Small mild diverticulitis in the descending colon. Able to reach splenic flexure but could go no further due to looping, and twisting of the colon. No pathologic blockage identified. Procedure: Patient was placed in the lateral position. Rectal exam is performed showing normal tone. Multiple firm nodules at the rectum not consis tent with neoplasm more consistent with inclusion cyst, all less than 3 mm. Scope was inserted into the rectum and advanced 80 cm which is around the splenic flexure. Due to likely a torturous colon we were unable to proceed past that point having used abdominal pressure, repositioning, and ?stiffening wire?. Water weighting was also tried without success. Impression: Normal flexible sigmoidoscopy. Small mild diverticulosis of the descending colon. I believe the most likely source of his previous GI bleed given the darkness of the stool was the gastritis. Plan: Policy of this hospital is to not do barium enema immediately after colonoscopy due to insufflation. Plan is scheduled barium enema as outpatient. Scope withdrawal time: Noncontributory Findings: diverticulosis Specimen(s): none sent Complications: none
== END 2021-07-14 15:45 | disposition home or self-care (01) ==
PROVIDERS: PCP Family Medicine; Referring Provider Surgery; Visit Provider Surgery
PROC: 0DJD8ZZ Inspection of Lower Intestinal Tract, Via Natural or Artificial Opening Endoscopic (ICD-10-PCS; CPT 45378; principal; 2021-07-14 13:00)
PROC: 0DJ08ZZ Inspection of Upper Intestinal Tract, Via Natural or Artificial Opening Endoscopic (ICD-10-PCS; CPT 43235; 2021-07-14 13:00)
DX: K29.70 Gastritis, unspecified, without bleeding (principal); K92.2 Gastrointestinal hemorrhage, unspecified; K44.9 Diaphragmatic hernia without obstruction or gangrene; I48.91 Unspecified atrial fibrillation; Z79.01 Long term (current) use of anticoagulants; K57.30 Diverticulosis of large intestine without perforation or abscess without bleeding
CPT/HCPCS: 43239; 45378; J2250; J3010

== ENCOUNTER → 2021-09-08 08:38 | Outpatient (CLI) | payer MEDICARE, OTHER, SELFPAY ==
[2021-07-23 14:37] VITALS: BMI 27.5
[2021-09-08 12:42] LABS: COVID19 -Nasal RAPID Negative (Negative)
== END ==
PROVIDERS: PCP Family Medicine; Visit Provider Surgery
DX: Z20.822 Contact with and (suspected) exposure to COVID-19 (principal); Z01.812 Encounter for preprocedural laboratory examination
CPT/HCPCS: 87635; C9803

== ENCOUNTER → 2021-09-09 09:57 | Day surgery (SDC) | payer MEDICARE, OTHER, SELFPAY ==
[2021-07-23 14:37] VITALS: BMI 27.5
[2021-09-04 10:04] VITALS: BMI 28.1
[2021-09-09] VITALS (9 sets, daily range): BP systolic 102–154; BP diastolic 69–96; PULSE 48–71; RESP 10–16; TEMP 36.6; O2SAT 96–100; BMI 28.1
[2021-09-09] MEDS: LACTATED RINGERS 1,000 ML 100 ML IV (10:06)
--- NOTE | 2021-09-09 10:43 | PM.PREOP ---
Pre-operative Note Interval Note History & Physical reviewed/Exam performed by Physician: Yes Changes to H&P: No
[2021-09-09] MEDS: CEFAZOLIN 1 GM VIAL 2 GM IV (11:04)
--- NOTE | 2021-09-09 11:08 | SUR.OPER ---
Supine on padded OR bed, head on pillow, arms secured on padded arm boards at <90 degrees abduction, legs uncrossed, safety belt at thigh, tape over blanket over lower legs.
[2021-09-09] MEDS: BUPIVACAINE 0.25% (PF) VIAL 30 ML INJ (11:12)
--- NOTE | 2021-09-09 12:15 | P.OP_ITS ---
Operative Date/Time/Diagnoses Date of procedure: 09/09/21 Time of procedure: 12:15 Pre-op diagnosis: left inguinal hernia Post-op diagnosis: same Procedure & Clinicians Procedure: open left inguinal hernia repair with mesh Same procedure as scheduled: Yes Indications: reducible left inguinal hernia Surgeon: Erwin Vargas Yes if Unassisted: Yes Anesthesia Type: General Operative Notes Findings: direct floor defect and cord lipoma. No indirect hernia. Specimen(s): none sent Estimated Blood Loss (mL): 20 Procedure in detail: The patient was placed supine on the table and bilateral lower extremity compression devices were applied. Anesthesia was induced they were intubated with an LMA and received 2g of Ancef. A time-out was performed. They were prepped and draped in sterile fashion. The left external inguinal ring and the anterior superior iliac crest were identified and marked. 1 finger breath above the inguinal ligament the skin was infiltrated with 0.25% bupivacaine. The skin incision was made here and the subcutaneous tissues were divided with electrocautery exposing the external oblique aponeurosis which was then opened along the direction of its fibers. Using blunt dissection the internal oblique aporneurosis was from the external oblique upper leaflet to identify the iliohypogastric nerve. Using a kittner the cord was carefully dissected away from the inguinal canal adjacent to the pubic tubercle. The cord including the vas deferens, testicular bloody supply, ilioguinal and genital nerve were encircled with a Keagan drain. A Moderate size direct floor defect was identified and it was reduced into the abdomen. plug of mesh was placed into the floor defect and was secured to the inguinal ligament and the internal oblique aponeurosis. The internal oblique aporneuorsis was approximated to the inguinal ligament Over the plug mesh.with Ethibond suture to reapproximate the floor. The cremasteric fibers surrounding the cord were divided using electrocautery adjacent to the internal ring.. The vas deferens and the testicular vessels were preserved and protected. There was No indirect hernia there was a small cord lipoma which was resected off of the cord structures. I selected a 7x 15 cm lightweight Pro Loop hernia mesh. The inferio r medial aspect of the mesh was anchored to insertion of the rectus muscle to the pubic tubercle such that there was approximately 2 cm of tubercle overlap with Ethibond and then was run continuously along the inferior edge of the mesh to the shelving edge of the inguinal ligament. Interrupted 3 0 Vicryl suture was used to anchor the superior aspect of the mesh to the conjoined tendon in several places. The tails were then reapproximated loosely around the spermatic cord. The tails of the mesh were then tucked under the external oblique aponeurosis. The repair was checked for hemostasis. The wound was irrigated with sterile saline. The external oblique aponeurosis was reapproximated in a running fashion using 3 0 Vicryl. The subcutaneous tissues were reapproximated with 3 0 Vicryl skin closed with 4 0 Monocryl followed by the application of Dermabond. At the end of the operation I ensured that both testicles were within the scrotum. The sponge instrument count at the end operation was correct. The patient emerged from anesthesia was extubated and transferred to the postoperative care unit in stable condition. A total of 30 ml of of 0.25% bupivicaine was used to infiltrate the skin. Complications: none Post-operative Condition: stable Disposition: same day surgery
== END | disposition home or self-care (01) ==
PROVIDERS: PCP Family Medicine; Referring Provider Surgery; Visit Provider Surgery
PROC: (CPT 49505; principal; 2021-09-09 10:45)
DX: K40.90 Unilateral inguinal hernia, without obstruction or gangrene, not specified as recurrent (principal); D17.6 Benign lipomatous neoplasm of spermatic cord; I10 Essential (primary) hypertension; I48.91 Unspecified atrial fibrillation; Z86.73 Personal history of transient ischemic attack (TIA), and cerebral infarction without residual deficits
CPT/HCPCS: 49505; C1781; J0690; J1885; J2405; J2704; J3010

== ENCOUNTER → 2022-11-10 11:07 | Outpatient (CLI) | payer MEDICARE, OTHER, SELFPAY ==
[2021-07-23 14:37] VITALS: BMI 27.5
[2022-11-10 13:01] LABS: COVID19 -Nasal RAPID Negative (Negative)
== END ==
PROVIDERS: PCP Family Medicine; Visit Provider Surgery
DX: Z01.812 Encounter for preprocedural laboratory examination (principal); Z20.822 Contact with and (suspected) exposure to COVID-19
CPT/HCPCS: 87635; C9803

== ENCOUNTER 2022-11-11 10:11 | Day surgery (SDC) | payer MEDICARE, OTHER, SELFPAY ==
[2021-07-23 14:37] VITALS: BMI 27.5
[2022-11-10 08:38] VITALS: BMI 27.6
[2022-11-11] VITALS (9 sets, daily range): BP systolic 118–156; BP diastolic 79–98; PULSE 62–690; RESP 12–16; TEMP 36.2–36.7; O2SAT 93–100; BMI 27.6
[2022-11-11] MEDS: LACTATED RINGERS 1,000 ML 100 ML IV (10:44)
--- NOTE | 2022-11-11 10:50 | PM.PREOP ---
Pre-operative Note Interval Note History & Physical reviewed/Exam performed by Physician: Yes Changes to H&P: No
--- NOTE | 2022-11-11 10:58 | SUR.OPER ---
Supine on padded OR bed, head on pillow, arms padded and tucked at sides, legs uncrossed, safety belt at thigh, tape over blanket over lower legs .
[2022-11-11] MEDS: CEFAZOLIN 2 GM/100 ML PREMIX 100 ML IV (11:15)
[2022-11-11] MEDS: BUPIVACAINE 0.5% (PF) VIAL 30 ML INJ (11:32)
--- NOTE | 2022-11-11 13:23 | PM.OP.1 ---
Operative Date/Time/Diagnoses Date of procedure: 11/11/22 Time of procedure: 13:23 Pre-op diagnosis: Recurrent left inguinal hernia Post-op diagnosis: same Procedure & Clinicians Procedure: Laparoscopic repair of recurrent left inguinal hernia Same procedure as scheduled: Yes Indications: 77-year-old man with prior open left inguinal hernia repair with a recurrence here for laparoscopic repair recurrent hernia. Surgeon: Erwin Yu Anesthesia Type: General Operative Notes Findings: Large indirect defect containing colon Specimen(s): none sent Estimated Blood Loss (mL): 50 Procedure in detail: The patient was brought to the operating room and placed supine on the table. Bilateral sequential compression devices were applied. General anesthesia was induced and they were intubated with an endotracheal tube. A cramer cath was placed in sterile fashion. They received 900g clindaymycin prior to skin incision. They were prepped and draped in sterile fashion. A time out was performed to ensure the correct patient, procedure and necessary equipment within the operating room. The skin was infiltrated with 0.25% bupivicaine. A 1 cm supra umbilical midline incision was made. The fascia was sharply incised and the abdomen entered traumatically. A 10mm balloon port was placed and pneumoperitoneum was established at 15mm Hg. Inspection of the abdomen demonstrated no evidence of injury upon entry. Two 5 mm ports were then placed under direct visualization in the right and left lower quadrant lateral to the rectus muscle. A large left indirect hernia was observed. The sigmoid colon was within the hernia and it was reduced in its attachments to the hernia sac were sharply transected. Starting on the left side the peritoneum 4 cm superior to the deep inguinal ring between the medial umbilical ligament and the anterior superior iliac spine was incised. The medial preperitoneal dissection was carried out into the space of Retzius bluntly, the bladder was swept inferiorly, the pubis and Jaxon's ligament were identified. Next attention was turned towards the lateral aspect of the peritoneal flap. The preperitoneal fat with the testicular vessels was carefully dissected off the inferior peritoneal flap. The cord was carefully inspected the remenants of the indirect hernia sac which had contained the colon were skeltonized off the cord preserving the testicular vessels and the vas deferns. There was no direct hernia defect. A large Bard 3D Max mesh was then placed into the abdomen and positioned such that the myopectineal orifice was completely covered with good overlap on all sides. The peritoneal flap was then repositioned back to its original position and a running V lock suture was used to close the peritoneum such that no bowel could herniate into the preperitoneal space. The area was examined for hemostasis. The 5mm trocars were removed under direct visualization and pneumoperitoneum was deflated through the umbilical trocar, The fascia at the umbilicus was closed with 0-Vicryl in figure of 8 fashion, skin closed with 4-0 Monocyl followed by Dermabond. The sponge and instrument count at the end of the case was correct. Both testicles were entirely within the scrotum at the end of the case. The patient emerged from anesthsia was extubated and transferred to recovery in stable condition. Complications: none Post-operative Condition: stable Disposition: same day surgery
== END 2022-11-11 15:00 | disposition home or self-care (01) ==
PROVIDERS: PCP Family Medicine; Referring Provider Surgery; Visit Provider Surgery
PROC: 0YQ64ZZ Repair Left Inguinal Region, Percutaneous Endoscopic Approach (ICD-10-PCS; CPT 49651; principal; 2022-11-11 11:45)
DX: K40.91 Unilateral inguinal hernia, without obstruction or gangrene, recurrent (principal); I48.20 Chronic atrial fibrillation, unspecified; I10 Essential (primary) hypertension; Z79.01 Long term (current) use of anticoagulants
CPT/HCPCS: 49651; 82962; J0690; J1170; J1885; J2405; J2704; J3010

== ENCOUNTER → 2023-05-17 11:57 | Outpatient (CLI) | payer MEDICARE, OTHER, SELFPAY ==
[2021-07-23 14:37] VITALS: BMI 27.5
[2023-05-17 14:12] LABS: Add Manual Diff / Slide Review NO; Basophils Absolute Auto 100 /uL (0-100); Basophils Percent Auto 1.3 % (0-2); Eosinophils Absolute Auto 200 /uL (0-450); Eosinophils Percent Auto 2.4 % (2-4); Hemoglobin 14.9 g/dL (13.5-17.5); Lymphocytes Absolute Auto 2000 /uL (1100-4500); Mean Corpuscular HGB Conc 33.9 % (30-36); Mean Corpuscular Hemoglobin 30.3 PG (26-34); Mean Corpuscular Volume 89.4 fL (80-100); Monocytes Absolute Auto 600 /uL (0-900); Monocytes Percent Auto 8.6 % (3-14); Neutrophils Absolute Auto 4700 /uL (1500-7000); Neutrophils Percent Auto 61.7 % (50-75); Platelet Count 257 X10^3/uL (150-400); Red Blood Cell Count 4.92 X10^6/uL (4.5-5.9); Red Cell Distribution Width 14.9 % (11.6-14.8); White Blood Cell Count 7.5 X10^3/uL (4.5-11.0)
[2023-05-17 14:54] LABS: BUN Creatinine Ratio 18.5 (6-22); Blood Urea Nitrogen 17 mg/dL (9-20); Calcium 8.8 mg/dL (8.4-10.2); Carbon Dioxide 27 mmol/L (22-32); Chloride 103 mmol/L (98-107); Estimated Glomerular Filt Rate > 60 mL/min (>60); Glucose 86 mg/dL (80-110); HEMOLYSIS < 15 (0-50); Potassium 3.8 mmol/L (3.4-5.1); Sodium 137 mmol/L (137-145)
[2023-05-17 16:40] LABS: Appearance Urine UA CLEAR; Bilirubin Urine UA NEGATIVE (NEGATIVE); Color Urine UA YELLOW; Glucose Urine UA NEGATIVE (Negative); Ketones Urine UA NEGATIVE (NEGATIVE); Leukocyte Esterase Urine UA NEGATIVE (NEGATIVE); Nitrite Urine UA NEGATIVE (Negative); Occult Blood Urine UA NEGATIVE (Negative); Protein Urine UA NEGATIVE (Negative); Urobilinogen Urine UA 0.2 E.U./dL (0.2); pH Urine UA 5.5 (4.5-8.0)
[2023-05-17 17:09] LABS: Bacteria Urine None Seen; Culture Indicated Urine Cult Not Indicated; RBC Urine None Seen (0-5/HPF); Squamous Epithelial Cell Urine None Seen (0-5/HPF); WBC Urine None Seen (0-5/HPF)
[2023-05-18 05:12] LABS: Labcorp Hemoglobin (Hb) A1c 5.7 % (4.8-5.6)
== END ==
PROVIDERS: PCP Family Medicine; Referring Provider Orthopaedic Surgery; Visit Provider Orthopaedic Surgery
DX: Z01.818 Encounter for other preprocedural examination (principal); R73.9 Hyperglycemia, unspecified; Z01.812 Encounter for preprocedural laboratory examination; N39.0 Urinary tract infection, site not specified
CPT/HCPCS: 36415; 80048; 81001; 83036; 85025; 93005

== ENCOUNTER 2023-07-08 08:24 | Day surgery (SDC) | payer MEDICARE, OTHER, SELFPAY ==
[2021-07-23 14:37] VITALS: BMI 27.5
[2023-07-01 12:06] VITALS: BMI 25.1
[2023-07-08] VITALS (16 sets, daily range): BP systolic 144–186; BP diastolic 95–112; PULSE 69–113; RESP 12–20; TEMP 36.2–37.2; O2SAT 92–98; BMI 25.1
--- NOTE | 2023-07-08 06:00 | DI.RAD.S_ITS ---
PROCEDURE: XR KNEE RT 1TO2V INDICATIONS: Right TKA TECHNIQUE: 2 view(s) of the knee acquired. COMPARISON: None. FINDINGS: Bones: Patient is status post knee joint arthroplasty. Hardware components are in expected positions. Visualized bony structures are intact. Soft tissues: Overlying postoperative changes are noted. IMPRESSION: Expected postsurgical change for left knee arthroplasty. Dictated by: Idalia Clemons MD, PhD on 07/08/2023 at 13:56 Approved by: Idalia Clemons MD, PhD on 07/08/2023 at 13:56
[2023-07-08] MEDS: ACETAMINOPHEN 325 MG TABLET 975 MG PO (09:18)
[2023-07-08] MEDS: LACTATED RINGERS 1,000 ML 42 ML IV ×2 (09:19→12:13)
[2023-07-08] MEDS: VANCOMYCIN 1,000 MG/200 ML PIGGYBACK 200 MG IV (09:45)
--- NOTE | 2023-07-08 10:12 | PM.PREOP ---
Pre-operative Note Interval Note History & Physical reviewed/Exam performed by Physician: Yes Changes to H&P: No
--- NOTE | 2023-07-08 10:12 | PM.OP.1 ---
Operative Date/Time/Diagnoses Date of procedure: 07/08/23 Time of procedure: 11:00 Pre-op diagnosis: Right knee OA severe Post-op diagnosis: same Procedure & Clinicians Procedure: Right total knee arthroplasty Same procedure as scheduled: Yes Indications: The patient has had progressively worsening right knee pain with radiographic changes consistent with arthritis. Non-operative management has failed and the patient has requested total knee replacement. The risks, benefits and alternatives to surgery were discussed with the patient prior to proceeding. Risks discussed included, but were not limited to, failure to relieve pain, stiffness, infection, nerve damage, deep venous thrombosis, pulmonary embolism, stroke, coma, heart attack, permanent paralysis and , as well as the potential need for eventual revision of the prosthetic. Surgeon: Antoinette Ga Radiologic Technologist Mammogram: Mp Acevedo Anesthesia Type: General and Spinal Operative Notes Findings: Severe right knee OA, adequate bone and stability Closure Type: primary Specimen(s): none sent Prosthetic devices, grafts, tissues, transplants, or devices: Ga and Nephew [facility] BCS 2 size 7 femur, size 7 tibia, +10 poly, 38 mm oval patella Estimated Blood Loss (mL): 250 Blood products transfused: none Tourniquet time (min): 83 Procedure in detail: The patient was seen in the pre-operative area, where the patient identified the right knee as the operative site and this was marked with my initials. The patient received pre-operative antibiotics, and was taken to the operating room and placed on the operative table in the supine position. After satisfactory anesthesia, a industrial court magistrate out was performed. The right leg was encircled with a tourniquet about the proximal thigh, and the leg was prepared from the toes to the tourniquet with ChloroPrep in the usual fashion and draped through sterile drapes. The leg was elevated and exsanguinated with Eschmark bandage and the tourniquet inflated to [250] mmHg pressure. A PA was used throughout the procedure and was essential for retraction and adequate safe implantation of the components. They Were also essential for assisting with adequate hemostasis. The knee was approached through an approximately 18 cm incision centered over the patella and carried into the knee through a medial parapatellar arthrotomy. A portion of the medial and lateral meniscus was resected. Soft tissue was carefully mobilized around the patella the patella was measured with a caliper. Bone was resected from the patella and the patellar height was reconstituted with up an appropriate sized patellar component. A cover was then placed on the patella. A small amount of additional medial and lateral meniscus was resected. The distal femur was cut at 5?. A [+2] cut was used. It looked like an appropriate distal femoral cut and the cut was made without difficulty. An extramedullary guide was used for the tibial cut. 10 mm was resected off the least affected side.The tibia was prepared. The rotation was assessed. The patient was placed in extension residual medial and lateral meniscus as well as any residual bone was carefully resected. [No] additional tibia was resected. Hemostasis was achieved especially posteriorly. Additional local was injected into the posterior capsule. The extension gap was assessed and additional releases for gap balancing were performed as necessary. It was checked with the gap manager pipeline. The femoral component was trial was placed and the notch was finished. The rotation was assessed and the appropriate size femoral guide was placed on the distal femur and finishing cuts were made. There was no evidence of notching. The anterior, posterior and chamfer cuts were then made. The posterior osteophytes and soft tissues were then removed. The posterior capsule was injected with part of a mixture of 60 ml 0.25% Marcaine mixed with 20 ml Exparel for post operative pain control. The remainder of this mixture was injected into the capsule and subcutaneous tissues during cement curing. The tibial and femoral components were then placed and the knee placed through a range of motion. Range of motion was [0-130], with good stability throughout the range. The trials were then removed, and the tibia was finished. The bone was prepared with pulsatile lavage, and dried with a sponge. Cement was applied and the final prosthetics placed. Excess cement was removed during and after cement curing. A brief Betadine soak was performed. After confirming there was no extruded cement posteriorly, the final tibial insert was placed. The knee was copiously irrigated and the tourniquet deflated. Hemostasis was obtained with the Bovie cautery. A drain was placed and brought out superolaterally. The capsule was closed with interrupted nonabsorbable suture. The subcutaneous layer was closed with barbed sutures, and the skin with a running 3-0 V-Lock suture and Surgical glue. An Aquacel Ag dressing was applied and the patient was taken to recovery having tolerated the procedure well. Complications: none Post-operative Condition: stable Disposition: Acute Care Plan for aftercare: The patient will be maintained on a standard total knee replacement protocol with weight bearing as tolerated. The patient will receive Pradaxa and sequential compression devices for DVT prophylaxis. The patient will be discharged home when safe for the home environment.
[2023-07-08] MEDS: CEFAZOLIN 2 GM/100 ML PREMIX 100 ML IV ×2 (10:55→18:48)
[2023-07-08] MEDS: TRANEXAMIC ACID 1,000 MG VIAL 2000 MG INJ ×2 (11:04→12:34)
--- NOTE | 2023-07-08 11:21 | SUR.OPER ---
Supine on padded OR bed. Pillow under head, arms secured on padded armboards <90 degree abduction. Safety belt across torso. Non-operative leg secured with tape over blanket over lower leg. Operative leg secured in DeMayo/Calvin/Nathe positioner. Foam padded brace at thigh of operative leg.
[2023-07-08] MEDS: BUPIVACAINE 0.25% (PF) 60 ML, EPINEPHrine 0.3 MG INJ (11:56)
[2023-07-08] MEDS: BUPIVACAINE LIPOSOME 266 MG/20 ML VIAL INJ (11:56)
[2023-07-08] MEDS: LACTATED RINGERS 1,000 ML 100 ML IV (15:27)
[2023-07-08] MEDS: OXYCODONE IR 10 MG TABLET PO (17:02)
[2023-07-08] MEDS: ASPIRIN EC 81 MG TABLET PO (20:35)
[2023-07-08] MEDS: ACETAMINOPHEN 325 MG TABLET 650 MG PO (20:35)
[2023-07-08] MEDS: DOCUSATE 100 MG CAPSULE PO (20:35)
[2023-07-08] MEDS: ATORVASTATIN 20 MG TABLET 10 MG PO (20:35)
[2023-07-09] MEDS: ACETAMINOPHEN 325 MG TABLET 650 MG PO ×4 (02:09→20:23)
[2023-07-09] MEDS: CEFAZOLIN 2 GM/100 ML PREMIX 100 ML IV (02:09)
[2023-07-09] MEDS: OXYCODONE IR 10 MG TABLET PO (06:17)
[2023-07-09 06:47] LABS: Hematocrit 42.5 % (41-53); Hemoglobin 14.3 g/dL (13.5-17.5)
--- NOTE | 2023-07-09 07:24 | PM.DS.1 ---
History of Present Illness History of Present Illness Date Patient Seen: 07/09/23 Time Patient Seen: 07:24 Chief complaint: Right TKA *OPB* Narrative: Operative Date/Time/Diagnoses Date of procedure: 07/08/23 Time of procedure: 11:00 Pre-op diagnosis: Right knee OA severe Post-op diagnosis: same Procedure & Clinicians Procedure: Right total knee arthroplasty Same procedure as scheduled: Yes Indications: The patient has had progressively worsening right knee pain with radiographic changes consistent with arthritis. Non-operative management has failed and the patient has requested total knee replacement. The risks, benefits and alternatives to surgery were discussed with the patient prior to proceeding. Risks discussed included, but were not limited to, failure to relieve pain, stiffness, infection, nerve damage, deep venous thrombosis, pulmonary embolism, stroke, coma, heart attack, permanent paralysis and , as well as the potential need for eventual revision of the prosthetic. Surgeon: Antoinette Ga Home Appliances Mechanic: Mp Acevedo Anesthesia Type: General and Spinal Operative Notes Findings: Severe right knee OA, adequate bone and stability Closure Type: primary Specimen(s): none sent Prosthetic devices, grafts, tissues, transplants, or devices: Ga and Nephew [facility] BCS 2 size 7 femur, size 7 tibia, +10 poly, 38 mm oval patella Estimated Blood Loss (mL): 250 Blood products transfused: none Tourniquet time (min): 83 Discharge Providers Provider Discharge Date: 07/09/23 Primary care physician: Joel López MD Consults: 07/08/23 06:00 Consult to Anesthesiology Routine Comment: Consulting Provider: Anesthesiologist Reason for consultation: Regional block for post operative pain control 07/08/23 14:34 Consult to Discharge Planning Routine Comment: Consult to Occupational Therapy Evaluate & Treat Comment: Physician Instructions: Evaluate and treat Consult to Physical Therapy Evaluate & Treat Comment: Physician Instructions: postop TKA protocol Discharge provider: Kylee Navarro PA-C Summary Hospital Course Discharge Diagnosis: Right knee osteoarthritis, s/p right total knee arthroplasty Hospital Course: Mr Keen's hospital course was remarkable for difficulty with/reaction to general anesthesia; there were no records available for my review, and information I received was only from the pt. He described having an 'out of body experience' and being 'terrified.' He was hypertensive and tachycardic yesterday afternoon and evening, but HR and BP seem to be stable and WNL this morning. He has been unable to void since surgery; he says he has not had this problem in the past. He has not yet been OOB. Despite these issues, he would like to go home later today if he is able to start voiding and passes evaluation by PT. Exam Vital Signs (past 8 hours): Oxygen Delivery Method Room Air Oxygen Flow Rate 0 Narrative Exam Narrative: 5/5 strength in hip flexors, quadriceps, hamstrings, DF, PF, EHL on right. Sensation to light touch intact throughout RLE. Calf soft, compressible, nontender. BEULAH and Aquacel CDI. Objective Labs 07/09/23 06:05 Labs: Laboratory Results - last 24 hr 07/09/23 06:05 Hgb 14.3 Hct 42.5 PFSH Medical History (Updated 07/01/23 @ 13:36 by Nirali Sanchez RN) Atrial fibrillation Essential tremor Glaucoma History of COVID-19 (07/2022) HLD (hyperlipidemia) Hypertension Skin cancer Sleep apnea TIA (transient ischemic attack) Surgical History (Updated 07/01/23 @ 13:08 by Nirali Sanchez RN) History of tonsillectomy Hx of bilateral cataract extraction (05/2023) Hx of hernia repair (11/11/22) Hx of left inguinal hernia repair (09/09/21) Family History Mother Cancer Father No pertinent past medical history Social History household members: spouse and family Smoking Status: Never smoker alcohol intake: former Discharge Assessment & Plan Assessment and Plan Assessment: Right knee osteoarthritis, s/p right total knee arthroplasty Plan of Treatment: Tamsulosin ordered. Pt may d/c home later today if he passes his PT eval and is able to void independently; otherwise, plan on d/c tomorrow. D/c rxs were previously given. Restart Pradaxa tomorrow. Outpt PT, f/u in office in 2 weeks as scheduled. Discharge Plan Discharge Plan Patient Disposition: Home Discharge orders & Medications Discharge Orders: Discharge (Order); Ordered 07/09/23 Ordered By: Kylee Navarro Prescriptions: New tamsulosin 0.4 mg capsule 0.4 mg PO DAILY Qty: 14 0RF Continued losartan 50 mg tablet 50 mg PO DAILY diltiazem HCl 240 mg capsule,extended release 24hr 240 mg PO DAILY simvastatin 20 mg tablet 20 mg PO BEDTIME timolol 0.5 % Drops 1 drp OPHTHALMIC (EYE) BID dabigatran etexilate [Pradaxa] 150 mg capsule 150 mg PO DAILY acetaminophen [Tylenol] 325 mg capsule 650 mg PO QID PRN (Reason: pain) Qty: 60 0RF Follow up/Referrals: Joel López MD [Primary Care Provider] - Antoinette Ga MD [Physician] - As previously scheduled (Follow up with Mp Acevedo PA-C, on 07/21/2023 @ 2:20 pm at [facility] office in [place].) Diet/Activity/Treatments Diet: Diet as Tolerated Activity: Walk frequently! Cold/Heat Therapy: Ice to knee as needed for pain. Skin/Wound/Dressing Care Report to your healthcare provider any signs of infection, such as:: chills, fever, night sweats, unusual drainage and unusual redness Dressing: May remove BEULAH wrap and shower on 07/11/2023. Leave Aquacel dressing in place until follow up in office. No bathing or otherwise soaking incision. Call the office if the dressing becomes saturated inside. Visit Report/Discharge Packet Instructions: DI for Knee Replacement Stand Alone Forms: Patient Portal/API, Surgery Discharge Discharge Data Primary Care Provider: Joel López Attending Provider: Antoinette Ga Quality VTE Deep Vein Thrombosis/Pulmonary Embolism Present on Admission: No
[2023-07-09] MEDS: TAMSULOSIN 0.4 MG CAPSULE PO (07:38)
[2023-07-09 09:05] VITALS: BP 151/98; PULSE 97; RESP 14; TEMP 36.6; O2SAT 94
[2023-07-09] MEDS: DOCUSATE 100 MG CAPSULE PO ×2 (09:28→20:24)
[2023-07-09] MEDS: ASPIRIN EC 81 MG TABLET PO ×2 (09:28→20:23)
[2023-07-09] MEDS: DABIGATRAN 75 MG CAPSULE 150 MG PO (09:28)
--- NOTE | 2023-07-09 09:28 | CM.DANOTE ---
DCP: Chart review for case, met with patient at bedside, they agree to case management assessment. Completed DCP assessment based on information available. Patient is a 78 year old admitted for right TKA. States he has planned OP PT in [facility] with PT Maxi Quinones. 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 Relays that he recalls waking up with delirium after anesthesia which he states has happened previously. Reviewed safety for bathroom use, confirms and demonstrates use of call small for nursing assistance. PCP: Joel López Payer: Medicare/[employer] DME: FWW at bedside (own) DCP: Home with OP PT pending medical and PT clearances. Olinda nEnis RN, CM Discharge Planning/Care Management CM Discharge Assessment Start: 07/09/23 09:22 Freq: Status: Active Protocol: Document 07/09/23 09:22 BQ (Rec: 07/09/23 09:28 BQ [id number]) Discharge Planning Assessment Assigned Regulatory Consultant Olinda Ennis RN, CM Advance Directives? No Advance Directives on File No History Provided By Patient,Medical Record Has Patient been admitted in last 30 No days? Prior Living Arrangements House Household Members spouse,family Type of transporation used prior to Relies on Others admit Independent with ADL's Yes Is patient alert and oriented? Yes Caregiver for Another No DME Already Rented / Owned FWW / Walker,Cane Discharge Plan Home Community Services Physical Therapy Transportation Arrangement Spouse able to transport home today Referrals Initiated None needed Whiteboard Updated in Patient Room with Yes name and ext. # of Regulatory Consultant Review Status In Process Next Review Type Continued Stay Review Pre-Anesthesia Assessment Start: 07/01/23 12:06 Freq: Status: Complete Protocol: Document 07/01/23 12:06 CAB (Rec: 07/01/23 13:36 CAB [id number]) Pre-Anesthesia Assessment Preferred Name Oscar Patient Information Reviewed Via Phone Assessment Assessment Completed With Patient Diagnostic Results BMP/CMP,CBC,EKG,Urinalysis Comment Lab/EKG @ 05/17/23 Primary Care Provider Joel López Seen Specialist in Last 12 Months Yes Specialist Seen Transfer Iron Operator,Orthopedist Primary Language Thai Preferred Language Thai Supervisor Boarding Required No Height 177.8 cm Weight 79.379 kg Body Mass Index (BMI) 25.1 Hearing Ability Normal Visual Impairment No Limitations Visual Assist None Dentition Type Teeth, Natural Present Barriers to Learning None Hx Anesthesia Reactions No Hx Family Anesthesia Reaction No Hx Malignant Hyperthermia No Hx Blood Transfusions No Hx Blood Transfusion Reaction No Anesthesia Review Requested No Concrete Form Setter No alcohol intake former alcohol intake frequency other Smoking Status Never smoker Substance Use Type does not use Pain Present Pain Reported Musculoskeletal Symptoms Abnormal Gait,Difficulty Walking,Joint Pain,Tremors History of Falling (Recent or History of No ) Patient is completely paralyzed or No completely immobile Prosthesis or Orthotic Device Cane,Front Wheel Walker Mental Status Oriented to own ability Is patient on oxygen? No Does patient have BURTON/SOB No Hx Sleep Apnea No CPAP/BIPAP use not prescribed Currently Taking a Beta Avril No Can You Climb a Flight of Stairs Without Yes SOB Hx Chest Pain No Hx SOB No Hx Syncope or Dizziness No Anti-Coagulant Therapy Yes: Pradaxa-hold 3 days prior per cardiology Has a Phone Manager Yes: 02/07/22 - follow-up prn Phone Manager name Dr. Jens Christina @ [facility] Cardiac Testing No Hx Pacemaker/ICD No Pacemaker Rep Required? No Cardiac Clearance Received Yes Comment Cardiac records scanned Diet Type At Home Regular Dysphagia No Gastrointestinal Symptoms None Chronic UTI No Urinary Catheter Present No Hx Urinary Self Catheterization No Diabetes No Hx Drug Resistant Organism No Presence of External or Internal Medical Yes: Bilat eye IOLs Devices Have you had any close contact with No someone diagnosed with COVID-19? Received a COVID vaccine? Yes: Pfizer Received all doses? Yes Marital Status Lives With spouse,family Current Living Arrangements House Number of Floors (Floors) One Floor Support System Spouse Does the Patient Have Assistance After Yes Surgery Patient Discharge Plan Description Return Home Comment Pt advised possible same day surgery per surgeon Feels Safe in Current Environment Yes Been Physically Hurt or Threatened By a No Person in Current Environment Do you have thoughts of harming yourself None or others? Are you currently considering suicide? No Do you have a plan to hurt yourself or No Plan others? Do You Have Any Spiritual Beliefs That No May Affect Your HC Choices? Do You Have Any Cultural Practices That No May Affect Your HC Choices? Comment Sabianism Who Can We Speak to About Patient's Care Family, friends Identifying Code for Release of Patient Declines to issue Information Health Care Proxy/Next of Kin Tierra () Health Care Proxy Emergency Contact Name Tierra () Emergency Contact Advance Directives? No Power of Sales Service Promoter No PAC Instructions Durable medical equipment, Medications to take/avoid, Nasal antibiotic,No ETOH/ petroleum product on skin DOS, NPO,Sensory aids,Sturdy shoes/ comfortable clothes,Do not bring valuables and remove jewelry
[2023-07-09 09:29] VITALS: BP 151/98; PULSE 97
[2023-07-09] MEDS: LOSARTAN 50 MG TABLET PO (09:29)
[2023-07-09] MEDS: dilTIAZem CD 120 MG CAP 240 MG PO (09:29)
[2023-07-09] MEDS: LIDOCAINE 2% (GLYDO) 6 ML GEL TOP (09:30)
--- NOTE | 2023-07-09 10:34 | PT.IIE ---
Current Diagnoses Unilateral primary osteoarthritis, right knee (07/08/23) Surgery Performed Operation Date: 07/08/23 10:45 Actual Procedures p Total Knee Arthroplasty(Right) - Antoinette Ga MD Surgical History (Last Updated 07/01/23 @ 13:08 by Nirali Sanchez, RN) History of tonsillectomy Hx of bilateral cataract extraction (05/2023) Hx of hernia repair (11/11/22) Hx of left inguinal hernia repair (09/09/21) Medical History (Last Updated 07/01/23 @ 13:36 by Nirali Sanchez RN) Atrial fibrillation Essential tremor Glaucoma History of COVID-19 (07/2022) HLD (hyperlipidemia) Hypertension Skin cancer Sleep apnea TIA (transient ischemic attack) Physical Therapy Inpatient Evaluation/Re-Eval M1 PT/OT-IP Prior Functional Status Start: 07/09/23 12:12 Freq: NEEDED Status: Active Protocol: Document 07/09/23 12:13 AB (Rec: 07/09/23 12:38 AB [id number]) Medical Review Prior Functional Status Medical History Reviewed Yes Diet/Fluid Consistency Regular Communication Pt is able to express needs Mobility and Gait IND with all mobility and gait , did not previously use assitive devices Activities of Daily Living and IADL's IND Prior Functional Level (Other details) IND Social History Household Members spouse Living Arrangements House Number of Floors (Floors) One Floor Number of Stairs To Enter/Railing? 3 MARGARITO c/ hand rail on right side Home Environment Standard Height Toilet,Walk in Shower,Built-In Shower Seat Home Equipment Front Wheel Walker,Straight Cane,Crutches Employment Status Retired Additional Social History Comment Pt lives with , however states they have neighbors/friends who are able to assist them as needed. M2 PT-IP Current Condition Start: 07/09/23 12:12 Freq: NEEDED Status: Active Protocol: Document 07/09/23 12:13 AB (Rec: 07/09/23 12:38 AB [id number]) Physical Therapy Current Condition Current Condition Evaluation Date 07/09/23 Treatment Diagnosis s/p R TKA Onset Date 07/08/23 M3 PT-IP Subjective Start: 07/09/23 12:12 Freq: NEEDED Status: Active Protocol: Document 07/09/23 12:13 AB (Rec: 07/09/23 12:38 AB [id number]) Subjective Physical Therapy Visit Type Type Initial Evaluation Visit Start Time 10:34 Visit Stop Time 11:31 Total Visit Minutes 57 Number of DISPLAY ASSOCIATE Visits 0 Physical Therapy Visit Comments Patient Comments Pt is agreeable to therapy and denies pain currently. Patient Goals To try out his new leg Therapy Pain Assessment Pain When Pain Assessed At Rest Pain Present Pain Present Denied Pain M4 PT-IP Mobility and Gait Start: 07/09/23 12:12 Freq: NEEDED Status: Active Protocol: Document 07/09/23 12:13 AB (Rec: 07/09/23 12:38 AB [id number]) PT-Bed Mobility Assessment Rolling Type of Rolling Roll to Right,Roll to Left Level of Assist Standby Assistance Supine to Sit Supine to Sit Contact Guard Assistance, Minimal Assistance Sit to Supine Sit to Supine Standby Assistance Scooting Scooting to Edge of Bed Standby Assistance Scooting Up and Down in Bed Standby Assistance PT-Transfer Assessment Sit to and From Stand Sit to and from Stand Contact Guard Assistance Equipment Transfer Assistive Device Front Wheeled Walker Orthotic/Prosthetic Devices or Brace: No Transfers Transfer Destination Bed,Chair Transfer Technique Stand Step Pivot Transfer Ability Level of Assist Standby Assistance,Contact Guard Assistance Comments Mobility Comments Pt requires verbal cues to manage FWW safely. Gait Assessment Gait Gait Assistance Required: Standby Assistance,Contact Guard Assist Distance (Feet) 150 Able to Maintain Weight Bearing Status Yes During Gait Assistive Devices Assistive Device Front Wheeled Walker Orthotic/Prosthetic Devices or Brace: No Gait Deviations General Gait Pattern Decreased Stride Length,Narrow Based Gait Factors Limiting Gait Function Factors Limiting Gait Function Decreased Strength,Limited Range of Motion,Pain,Poor Safety Awareness Comments Gait Comments Pt reports mild pain when ambulating. He demos narrow JUSTEN and shortened stride length. The pt also has some difficulty guiding FWW in a straight line due to visual deficits (pt had eye surgery recently). Stair Climbing Assessment Evaluation Level of Assist On Stairs Standby Assistance,Contact Guard Assistance Devices Stair Climbing Assistive Devices None Technique/Endurance Stair Climbing Direction Ascend and Descend Stair Climbing Technique Step to Step Number of Steps Climbed 3 Query Text: Stair Climbing Set # Repetitions (reps) 2 Comments Stair Climbing Comments Ascended and descended with step to step pattern, but requiring verbal cues for sequencing and safety due to poor safety awareness and visual deficits. Also practiced ascending/descending laterally, however the pt had increased difficulty performing with this technique due to being unable to take a large enough step with RLE to allow LLE space to descend onto step. PT-Balance Assessment Sitting Balance and Reactions Static Sitting Balance Ability Good Dynamic Sitting Balance Ability Good Standing Balance and Reactions Static Standing Balance Ability Good Dynamic Standing Balance Ability Good M5 PT-IP Objective Assessments Start: 07/09/23 12:12 Freq: NEEDED Status: Active Protocol: Document 07/09/23 12:13 AB (Rec: 07/09/23 12:38 AB [id number]) Orientation Orientation/Cognition Level of Alertness Alert Orientation Name,Age,Birthday,Month,Date, Year,Day of Week,Place, Situation Language Function Ability Word Finding Difficulties Safety Awareness Decreased Safety Awareness Memory Description Short Term Impaired Comments Pt had difficulty following commands, requiring several verbal and tactile cues for safety. Gross Range of Motion Upper Extremity ROM Assessment Within Functional Limits Lower Extremity ROM Assessment Right Impaired Impairments secondary to R TKA Strength Upper Extremity Strength Assessment Within Functional Limits Lower Extremity Strength Assessment Right Impaired Comments Strength Comments secondary to R TKA Sensation Assessment Sensation Gross Sensation WNL Muscle Tone Muscle Tone WNL Yes M6 PT-IP Treatment Start: 07/09/23 12:12 Freq: NEEDED Status: Active Protocol: Document 07/09/23 12:13 AB (Rec: 07/09/23 12:38 AB [id number]) Physical Therapy Treatment Exercises Exercises Ankle Pumps Education Education Provided Weight Bearing Status,Post-Op Packet,Safety Equipment Issued Equipment Type and Company FWW Other Treatments Other Treatment Performed Pt and pt's educated on safety with functional mobility including ambulation, STS and transfers, and use of modalities to improve symptoms. M7 PT-IP Assessment and Plan Start: 07/09/23 12:12 Freq: NEEDED Status: Active Protocol: Document 07/09/23 12:13 AB (Rec: 07/09/23 12:38 AB [id number]) PT Summary Assessment and Plan Potential Rehabilitation Potential Excellent Status of Condition at Evaluation Stable Summary Impairments Pain,ROM,Strength,Gait Assessment Summary Rosendo Keen is a 78 year old male patient s/p R TKA performed on 07/08/2023. Today' s PT evaluation revealed deficits consistent with this surgical procedure, including RLE weakness and ROM deficits, gait impairments, and pain symptoms. These deficits are limiting his level of function , as he currently requires SBA to CGA to perform these tasks . He also demonstrates decreased safety awareness, requiring cues to safely perform functional mobility, especially with gait. However, the pt has a good support system and would do well. Goals Bed Mobility Goal Independent Transfer Goal Independent Gait Goal Independent Gait Distance 200 ft Days to Meet Goals 5 Frequency of Treatment Frequency Of Treatment Twice a Day Treatment Plan Physical Therapy Treatment Plan Bed Mobility Training,Transfer Training,Gait Training, Therapeutic Exercise,Post Op Education,Hot or Cold Pack, Neuromuscular Re-ed Weight Bearing Status Weight Bearing Status Weight Bear as Tolerated Recommendations To Nursing Amount of Assist Needed Standby Assistance,1 Person Assist Discharge Recommendations PT Discharge Recommendations Home,Outpatient PT Transportation Needs at Discharge Private Vehicle
[2023-07-09 12:40] VITALS: BP 137/95; PULSE 92; RESP 16; TEMP 36.4; O2SAT 93
[2023-07-09] MEDS: OXYCODONE IR 5 MG TABLET PO (12:59)
--- NOTE | 2023-07-09 13:12 | PC.NURSE ---
Addendum entered by Angelic Tolliver R.N. 07/09/23 18:53: Bladder scanned again at 1730 - 395mL. Notified MD Ela Ga that pt unable to void for 8 hours and bladder scan results. MD Ela Ga recommended to I&O cath if >450mL. She encouraged pt to walk and ordered more stool softeners to help pt have a BM. reports that this will likely help. Relayed plan to patient, patient's , and night RN. Will continue to monitor. Original Note: Day shift: Received in report that night assistant bladder scan at 0430 was approximately 250mL. Bladder scanned again at 0830 - 800mL. Did I&O cath after notifying GRANT Navarro. 1400mL emptied via cathetar. Next due to void is 1800. Will continue to monitor.
--- NOTE | 2023-07-09 13:23 | OT.IP.EVAL ---
Current Diagnoses Unilateral primary osteoarthritis, right knee (07/08/23) Surgery Performed Operation Date: 07/08/23 10:45 Actual Procedures p Total Knee Arthroplasty(Right) - Antoinette Ga MD Past Medical History (Last Updated 07/01/23 @ 13:36 by Nirali Sanchez, RN) Atrial fibrillation Essential tremor Glaucoma History of COVID-19 (07/2022) HLD (hyperlipidemia) Hypertension Skin cancer Sleep apnea TIA (transient ischemic attack) Surgical History (Last Updated 07/01/23 @ 13:08 by Nirali Sanchez RN) History of tonsillectomy Hx of bilateral cataract extraction (05/2023) Hx of hernia repair (11/11/22) Hx of left inguinal hernia repair (09/09/21) Occupational Therapy Inpatient Evaluation/Re-Eval M1 PT/OT-IP Prior Functional Status Start: 07/09/23 14:12 Freq: NEEDED Status: Active Protocol: Document 07/09/23 12:43 [facility] (Rec: 07/09/23 14:38 [facility] [id number]) Medical Review Prior Functional Status Medical History Reviewed Yes Diet/Fluid Consistency Regular Communication Pt is able to express needs Mobility and Gait IND with all mobility and gait , did not previously use assistive devices Activities of Daily Living and IADL's IND Prior Functional Level (Other details) IND Social History Household Members spouse Living Arrangements House Number of Floors (Floors) One Floor Number of Stairs To Enter/Railing? 3 MARGARITO c/ hand rail on right side Home Environment Standard Height Toilet,Walk in Shower,Built-In Shower Seat Home Equipment Front Wheel Walker,Straight Cane,Crutches Employment Status Retired Additional Social History Comment Pt lives with , however states they have neighbors/friends who are able to assist them as needed. M2 OT-IP Current Condition Start: 07/09/23 14:12 Freq: Status: Active Protocol: Document 07/09/23 12:43 [facility] (Rec: 07/09/23 14:38 [facility] [id number]) Occupational Therapy Current Condition Current Condition Evaluation Date 07/09/23 Treatment Diagnosis S/P R TKA Diagnosis Onset Date 07/08/23 M3 OT- IP Subjective and Pain Start: 07/09/23 14:12 Freq: Status: Active Protocol: Document 07/09/23 12:43 [facility] (Rec: 07/09/23 14:38 [facility] [id number]) OT- Subjective Occupational Therapy Visit Type Type Initial Evaluation Visit Start Time 12:43 Visit Stop Time 13:23 Total Visit Minutes 40 Occupational Therapy Visit Comments Patient Comments Pt wanting to get back to bed and pt agreed work with OT. Pt 's in the room during OT eval. Patient/Caregiver Goals To go home. OT Pain Assessment Pain When Pain Assessed During Mobility Pain Present Pain Present Pain Reported Location Left Knee Intensity 5 Scale Used Numeric (0 - 10) M4 OT- IP ADL's Start: 07/09/23 14:12 Freq: Status: Active Protocol: Document 07/09/23 12:43 [facility] (Rec: 07/09/23 14:38 [facility] [id number]) OT ADL-Dressing General Eval Lower Body Dressing Ability Minimal Assistance,Maximum Assistance Comments OT Dressing Comments Able to show pt and his armhole presser and socks aid. Pt a little confused and trying to wally his socks over his right foot that already had a sock on. OT ADL-Toileting Comments OT Toileting Comments Pt not having to go at this time. OT ADL-Bathing Comments OT Bathing Comments Pt insistent to shower at home . Pt has a built in seat at home but space too small for a shower chair per pt. Sugggested to have the FWW in the shower and have grab bars or just sponge off initially. M5 OT- IP IADL's Start: 07/09/23 14:12 Freq: Status: Active Protocol: Document 07/09/23 12:43 [facility] (Rec: 07/09/23 14:38 [facility] [id number]) OT-Instrumental Activities of Daily Living Deficits IADL Deficits Identified Deficits Home Safety Awareness Awareness of Need for Assistance at Home Decreased Awareness Ability to Problem Solve Emergency Unable to Problem Solve Situations Home Safety Comments Pt a little confused and needing increased time to get his words out at this time. Medication Management Medication Management Caregiver Administers Money Management Money Management Caregiver Provides Assistance Meal Preparation Meal Preparation Caregiver Provides Assist Belly Packer Belly Packer Caregiver Provides Assist Driving Driving Caregiver Provides Assist M6 OT- IP Functional Cognition Start: 07/09/23 14:12 Freq: Status: Active Protocol: Document 07/09/23 12:43 [facility] (Rec: 07/09/23 14:38 [facility] [id number]) Cognitive Factors Limiting Selfcare Function Cognitive Ability Level of Alertness Alert,Confusional State Patient Orientation Name,Situation Attention Span Ability Capable of Focused Attention, Capable of Sustained Attention Ability to Follow Commands Able to Follow One Step Commands with Increased Time, Able to Follow One Step Commands with Repetition Memory Description Short Term Impaired Cognitive Comments Cognitive Assessment Comments Pt needing concrete cues to follow. Pt forgetting that he was needing pain medications after OT pushing the call light to get the nurse. OT- Vision and Hearing OT- Hearing Assessment OT- Hearing Assessment WFL M7 OT- IP Mobility and Balance Start: 07/09/23 14:12 Freq: Status: Active Protocol: Document 07/09/23 12:43 [facility] (Rec: 07/09/23 14:38 [facility] [id number]) OT- Bed Mobility Assessment Sit to Supine Sit to Supine Assist Moderate Assistance OT-Transfer Assessment Sit to and From Stand Sit to and from Stand Minimal Assistance,Moderate Assistance Transfers Transfer Ability Minimal Assistance Technique Transfer Destination Bed,Chair Devices Transfer Assistive Devices Gait Belt,Front Wheeled Walker Comments Mobility Comments Pt DEBBIE/MODA to stand and vc to straighten his legs out. Pt 's able to wally the gait belt and assist pt to stand. Pt needing assist for his balance and to guide the FWW as unsteady on his feet. Pt needing MODA to stand and assist to get his RLE back into bed. OT- Balance Assessment Sitting Balance and Reactions Static Sitting Balance Ability Good Dynamic Sitting Balance Ability Good Standing Balance and Reactions Static Standing Balance Ability Fair Dynamic Standing Balance Ability Poor Comments Other Balance Tests/Deviations/Treatment Pt unsteady on his feet and : needing cues to tighten his RLE while walking while getting back to be with the FWW with his . M9 OT- IP Assessment and Plan Start: 07/09/23 14:12 Freq: Status: Active Protocol: Document 07/09/23 12:43 [facility] (Rec: 07/09/23 14:38 [facility] [id number]) OT Summary Assessment and Plan Potential Rehabilitation Potential Good Analytic Complexity at Evaluation Low Summary OT Impairments Pain,Balance,Functional Cognition,Functional Mobility, Dressing,Toileting,Bathing, Toilet Transfers,Shower Transfers,Activity Tolerance Progress Towards Goals Slow Progress due to Pain,Slow Progress due to Medical Issues,Slow Progress due to Activity Tolerance,Slow Progress due to Cognition Assessment Summary Pt low complexity and main barriers are steps, needing vc for safety awareness, assist for balance and concrete vc to follow. Pt is very forgetful and will benefit from 24/7 available assist at home but not 1:1 assist and outpt PT. Pt's will continue to benefit from caregiver training. Goals Self-Feeding Goal Independent Grooming Goal Independent Dressing Goal Minimal Assistance Toileting Goal Independent Bathing Goal Minimal Assistance Toilet Transfer Goal Independent Shower Transfer Goal Standby Assistance Patient/Caregiver Education Goal Caregiver Independent Assisting Patient Days to Meet Goals 7 Frequency of Treatment Frequency Of Treatment Once a Day Treatment Plan OT Treatment Plan ADL Training,Functional Mobility,Patient/Family Education,Discharge Planning Discharge Recommendations OT Discharge Recommendations Home with 24/7 Assist Available,Outpatient PT Home Equipment Needs grab bars Transportation Needs at Discharge Private Vehicle
--- NOTE | 2023-07-09 15:05 | PT.IPTN ---
Current Diagnoses Unilateral primary osteoarthritis, right knee (07/08/23) Surgery Performed Operation Date: 07/08/23 10:45 Actual Procedures p Total Knee Arthroplasty(Right) - Antoinette Ga MD Physical Therapy Treatment Note M2 PT-IP Current Condition Start: 07/09/23 12:12 Freq: NEEDED Status: Active Protocol: Document 07/09/23 12:13 AB (Rec: 07/09/23 12:38 AB [id number]) Physical Therapy Current Condition Current Condition Evaluation Date 07/09/23 Treatment Diagnosis s/p R TKA Onset Date 07/08/23 M3 PT-IP Subjective Start: 07/09/23 12:12 Freq: NEEDED Status: Active Protocol: Document 07/09/23 15:33 TS (Rec: 07/09/23 15:56 TS [id number]) Subjective Physical Therapy Visit Type Type Treatment Note Visit Start Time 15:05 Visit Stop Time 15:31 Total Visit Minutes 26 Notes Spouse present for caregiver training. Number of BARREL CHARRER HELPER Visits 1 Physical Therapy Visit Comments Patient Comments Pt found resting in bed, spouse in room, pt reports having mild pain, agreeable to PT. Therapy Pain Assessment Pain When Pain Assessed During Mobility Pain Present Pain Present Pain Reported M4 PT-IP Mobility and Gait Start: 07/09/23 12:12 Freq: NEEDED Status: Active Protocol: Document 07/09/23 15:33 TS (Rec: 07/09/23 15:56 TS [id number]) PT-Bed Mobility Assessment Supine to Sit Supine to Sit Contact Guard Assistance, Minimal Assistance Scooting Scooting to Edge of Bed Contact Guard Assistance PT-Transfer Assessment Sit to and From Stand Sit to and from Stand Contact Guard Assistance Equipment Transfer Assistive Device Gait Belt,Front Wheeled Walker Orthotic/Prosthetic Devices or Brace: No Comments Mobility Comments Supine to sit from flat bed CGA/Susana for uprighting trunk with assist from spouse, required max cueing for LEs over to EOB and BUE support, pt uses core to sit up. He scooted to EOB CGA from spouse with max cueing for BUE and feet flat on floor. Sit to stand CGA from spouse, pt required cues for weight forward and BUE pushing from bed. Pt requested to use toilet, pt let go of FWW and attempted to walk in hallway, was redirected to use FWW and to ambulate to bathroom. Pt ambulated ~15' in room to toilet CGA from spouse, pt has some tremoring in UEs, provided education on proper handplcement on gait belt. Stand to sit on toilet Susana for slow eccentric control, pt required max cueing for grab bars and sequencing. Pt was left on toilet, spouse heading to [facility] for commode or toilet riser, RN notified pt attempting to empty bladder so he can d/c. Gait Assessment Gait Gait Assistance Required: Contact Guard Assist Distance (Feet) 15 Able to Maintain Weight Bearing Status Yes During Gait Assistive Devices Assistive Device Front Wheeled Walker Orthotic/Prosthetic Devices or Brace: No Gait Deviations General Gait Pattern Decreased Stride Length,Narrow Based Gait Factors Limiting Gait Function Factors Limiting Gait Function Decreased Strength,Limited Range of Motion,Pain,Poor Safety Awareness Comments Gait Comments See mobility comments. PT-Balance Assessment Sitting Balance and Reactions Static Sitting Balance Ability Good Dynamic Sitting Balance Ability Good Standing Balance and Reactions Static Standing Balance Ability Good Dynamic Standing Balance Ability Fair M5 PT-IP Objective Assessments Start: 07/09/23 12:12 Freq: NEEDED Status: Active Protocol: Document 07/09/23 12:13 AB (Rec: 07/09/23 12:38 AB [id number]) Orientation Orientation/Cognition Level of Alertness Alert Orientation Name,Age,Birthday,Month,Date, Year,Day of Week,Place, Situation Language Function Ability Word Finding Difficulties Safety Awareness Decreased Safety Awareness Memory Description Short Term Impaired Comments Pt had difficulty following commands, requiring several verbal and tactile cues for safety. Gross Range of Motion Upper Extremity ROM Assessment Within Functional Limits Lower Extremity ROM Assessment Right Impaired Impairments secondary to R TKA Strength Upper Extremity Strength Assessment Within Functional Limits Lower Extremity Strength Assessment Right Impaired Comments Strength Comments secondary to R TKA Sensation Assessment Sensation Gross Sensation WNL Muscle Tone Muscle Tone WNL Yes M6 PT-IP Treatment Start: 07/09/23 12:12 Freq: NEEDED Status: Active Protocol: Document 07/09/23 15:33 TS (Rec: 07/09/23 15:56 TS [id number]) Physical Therapy Treatment Education Education Provided Weight Bearing Status,Post-Op Packet,Safety Equipment Issued Equipment Type and Company FWW Other Treatments Other Treatment Performed Education was provided to pt and spouse on proper bed mobility sequencing, handplacment and assistance needed for sit to stands and gait. M7 PT-IP Assessment and Plan Start: 07/09/23 12:12 Freq: NEEDED Status: Active Protocol: Document 07/09/23 15:33 TS (Rec: 07/09/23 15:56 TS [id number]) PT Summary Assessment and Plan Potential Rehabilitation Potential Excellent Summary Impairments Pain,ROM,Strength,Gait Progress Towards Goals Progressing Toward Goals Assessment Summary Pt is progressing well with his mobility. He continues to bed CGA/Susana for bed mobility. He performed sit to stand CGA with FWW. In standing pt let go of FWW and was confused or perhaps due to poor eye sight attempted to walk into hallway to use bathroom, required tactile cues to grasp FWW and redirected to restroom. Pt ambulates with a slow gait CGA from spouse, has tremoring in UEs, had no buckling or LOB. Pt with some difficulty lowering onto toilet. He required max cueing for stand to sit sequencing and Susana for slow eccentric control. Recommended spouse get higher surface from [employer] of commode or toilet riser. Spouse was educated/instructed on proper donning of gait belt, bed mobility, sit to stands and gait. PT is recommending return home with assist from spouse and outpatient therapy. Goals Bed Mobility Goal Independent Transfer Goal Independent Gait Goal Independent Gait Distance 200 ft Days to Meet Goals 5 Frequency of Treatment Frequency Of Treatment Twice a Day Treatment Plan Physical Therapy Treatment Plan Bed Mobility Training,Transfer Training,Gait Training, Therapeutic Exercise,Post Op Education,Hot or Cold Pack, Neuromuscular Re-ed Weight Bearing Status Weight Bearing Status Weight Bear as Tolerated Recommendations To Nursing Amount of Assist Needed 1 Person Assist Discharge Recommendations PT Discharge Recommendations Home with Assistance, Outpatient PT Transportation Needs at Discharge Private Vehicle
[2023-07-09 17:36] VITALS: BP 138/99; PULSE 85; RESP 16; TEMP 36.1; O2SAT 93
[2023-07-09] MEDS: ATORVASTATIN 20 MG TABLET 10 MG PO (20:23)
[2023-07-09 21:20] VITALS: BP 106/65; PULSE 94; RESP 16; TEMP 36.2; O2SAT 93
[2023-07-10 01:54] VITALS: BP 124/70; PULSE 91; RESP 16; TEMP 36.1; O2SAT 96
[2023-07-10] MEDS: ACETAMINOPHEN 325 MG TABLET 650 MG PO ×2 (04:24→08:01)
--- NOTE | 2023-07-10 04:39 | PC.NURSE ---
Pt started going to the bathroom around 2030 last night, had an unmeasured episode of urine, post void residual was 50 ml. pt ambulated to the bathroom around 2300 and voided 300 ml of urine. Pt went back to the bathroom around 0400 and voided again (unable to measure urine, despite having a measuring device in the toilet).
[2023-07-10 04:44] VITALS: BP 131/61; PULSE 83; RESP 15; TEMP 36.2; O2SAT 97
[2023-07-10 08:00] VITALS: BP 131/61; PULSE 83
[2023-07-10] MEDS: ASPIRIN EC 81 MG TABLET PO (08:00)
[2023-07-10] MEDS: DABIGATRAN 75 MG CAPSULE 150 MG PO (08:00)
[2023-07-10] MEDS: LOSARTAN 50 MG TABLET PO (08:00)
[2023-07-10] MEDS: DOCUSATE 100 MG CAPSULE PO (08:01)
[2023-07-10] MEDS: dilTIAZem CD 120 MG CAP 240 MG PO (08:01)
[2023-07-10 08:23] VITALS: BP 120/76; PULSE 95; RESP 17; TEMP 35.9; O2SAT 97
--- NOTE | 2023-07-10 09:17 | PM.PNPO.1 ---
Subjective Subjective Date Patient Seen: 07/10/23 Time Patient Seen: 09:18 Interval history: Pt sleeping, arouses easily to voice. Voiding and eating without difficulty. Pain well-controlled with oral medication. Would like to go home. Exam Vital Signs (past 8 hours): - 07/10/23 01:54 07/10/23 04:44 07/10/23 08:00 Temperature 97 F L 97.1 F L Pulse Rate 91 H 83 83 Respiratory Rate 16 15 Blood Pressure 124/70 131/61 131/61 Pulse Oximetry 96 97 Oxygen Flow Rate 07/10/23 08:23 Temperature 96.7 F L Pulse Rate 95 H Respiratory Rate 17 Blood Pressure 120/76 Pulse Oximetry 97 Oxygen Flow Rate 0 Oxygen Delivery Method Room Air Oxygen Flow Rate 0 Narrative Exam Narrative: 5/5 strength in hip flexors, quadriceps, hamstrings, DF, PF, EHL on right. Sensation to light touch intact throughout RLE. Calf soft, compressible, nontender and without palpable cords or masses. Objective Labs 07/09/23 06:05 PFSH Medical History (Updated 07/01/23 @ 13:36 by Nirali Sanchez RN) Atrial fibrillation Essential tremor Glaucoma History of COVID-19 (07/2022) HLD (hyperlipidemia) Hypertension Skin cancer Sleep apnea TIA (transient ischemic attack) Surgical History (Updated 07/10/23 @ 09:20 by Kylee Navarro PA-C) History of tonsillectomy Hx of bilateral cataract extraction (05/2023) Hx of hernia repair (11/11/22) Hx of left inguinal hernia repair (09/09/21) Family History Mother Cancer Father No pertinent past medical history Social History household members: spouse Smoking Status: Never smoker alcohol intake: former Assessment & Plan Post-op Assessment and plan (1) Total knee replacement status: Assessment and Plan narrative: Discharge home today. Restart Pradaxa today, multimodal pain control (pt has rxs at home), outpt PT, f/u in office in 2 weeks as scheduled. Postoperative Procedures: Procedures Operation Date: 07/08/23 10:45 Actual Procedure Side Surgeon p Total Knee Arthroplasty Right Antoinette A Ga, MD Postoperative day: 2 Quality VTE Deep Vein Thrombosis/Pulmonary Embolism Present on Admission: No
--- NOTE | 2023-07-10 10:59 | PC.NURSE ---
Day shift: Discharge information gone over with patient and patient's . All questions answered and they stated understanding. PIV d/c'ed. Pt has all belongings with him. Pt escorted via wheelchair to emergency exit with [facility] where parked their car.
== END 2023-07-10 11:00 | disposition home or self-care (01) ==
LOC: OR 08:26 → AC 08:26
PROVIDERS: PCP Family Medicine; Referring Provider Orthopaedic Surgery; Visit Provider Orthopaedic Surgery
PROC: 0SRC0JZ Replacement of Right Knee Joint with Synthetic Substitute, Open Approach (ICD-10-PCS; CPT 27447; principal; 2023-07-08 10:45)
DX: M17.11 Unilateral primary osteoarthritis, right knee (principal); I10 Essential (primary) hypertension; I48.91 Unspecified atrial fibrillation
CPT/HCPCS: 27447; 36415; 73560; 82962; 85014; 85018; 97110; 97116; 97161; 97165; 97530; 97535; C1776; C9290; J0171; J0690; J1170; J3010

== ENCOUNTER → 2023-07-27 15:17 | Outpatient (CLI) | payer MEDICARE, OTHER, SELFPAY ==
[2023-07-08 14:59] VITALS: BMI 25.1
--- NOTE | 2023-07-27 | DI.US.S_ITS ---
PROCEDURE: US PERIPH VENOUS LOW EXTREM RT INDICATIONS: EDEMA 3 WEEKS POST RIGHT TKA TECHNIQUE: Real-time imaging, as well as color and pulse Doppler interrogation, were performed of the lower extremity deep veins from the inguinal ligament to the popliteal fossa, with documentation of the visualized calf veins. COMPARISON: [facility] [place], CR, XR KNEE 4+ VIEWS RIGHT, 07/21/2023, 15:05. FINDINGS: The common femoral, femoral, popliteal, and the visualized calf veins are normally compressible, and free of intraluminal thrombus. Color and pulse Doppler demonstrate normal phasic intraluminal flow. There is normal augmentation response to distal compression maneuver. IMPRESSION: No findings of lower extremity deep venous thrombosis. Dictated by: Manuel Rodriguez M.D. on 07/27/2023 at 15:23 Approved by: Manuel Rodriguez M.D. on 07/27/2023 at 15:23
== END ==
PROVIDERS: PCP Family Medicine; Referring Provider Orthopaedic Surgery; Visit Provider Orthopaedic Surgery
DX: Z96.651 Presence of right artificial knee joint (principal); Z09 Encounter for follow-up examination after completed treatment for conditions other than malignant neoplasm
CPT/HCPCS: 93971

== ENCOUNTER 2023-08-21 13:00 | Emergency (ER) | payer MEDICARE, OTHER, SELFPAY ==
[2023-07-08 14:59] VITALS: BMI 25.1
--- NOTE | 2023-08-25 23:50 | ED_ITS ---
HPI - Neuro Symptoms/Deficit History of Present Illness HPI Narrative: 78-year-old male nonsmoker with history atrial fibrillation on Pradaxa, hypertension and hyperlipidemia presents with his in the chief complaint of a sudden onset of neurologic symptoms 90 minutes prior to his arrival. He was sitting at the table with his when he suddenly had difficulty with speech and could not find words. He may have been dizzy and had some blurring of vision as well. He denies any trauma or head injury, no neck pain or fever, no extremity numbness, tingling or weakness. They presented here for fear of the possibility of stroke. He states that he has not taken his Pradaxa in at least 2 days. He is activated a code stroke given his symptoms and time of onset. Patient was a walk-in to our emergency department while we were on full diver due to internal disaster including loss of EMR, no access to imaging, PACS system. Given the circumstances of the visit a call was placed to [facility] to request STAT transfer given time frame and potential for intervention. I spoke with Dr. Ford at [facility] and he is happy to accept patient in transfer Related Data Home Medications Medication Instructions Recorded Confirmed diltiazem HCl 240 mg 240 mg PO DAILY 07/08/21 07/08/23 capsule,extended release 24 hr losartan 50 mg tablet 50 mg PO DAILY 07/08/21 07/08/23 simvastatin 20 mg tablet 20 mg PO BEDTIME 07/08/21 07/08/23 dabigatran etexilate 150 mg 150 mg PO DAILY 07/14/21 07/08/23 capsule (Pradaxa) timolol 0.5 % eye drops 1 drp ophthalmic (eye) BID 07/01/23 07/08/23 Previous Rx's Medication Instructions Recorded acetaminophen 325 mg capsule 650 mg PO QID PRN pain #60 caps 09/09/21 (Tylenol) tamsulosin 0.4 mg capsule 0.4 mg PO DAILY #14 caps 07/09/23 Allergies Allergy/AdvReac Type Severity Reaction Status Date / Time lisinopril AdvReac Mild Cough Verified 07/08/23 08:58 Review of Systems Review of Systems Narrative: GENERAL: Denies chills, fatigue, malaise, fever, sweats. HEENT: Denies sinus pain, ear pain, sore throat, difficulty swallowing, d izziness. RESPIRATORY: Denies dyspnea, cough, wheezing, hemoptysis, sputum. CARDIOVASCULAR: Denies chest pain, palpitations, orthopnea, edema, GASTROINTESTINAL: Denies nausea, vomiting, abdominal pain, diarrhea, constipation, melena. : Denies dysuria, frequency, incontinence, hematuria, urinary retention. MUSCULOSKELETAL: denies weakness, joint pain, or bony pain SKIN: Denies rash, skin lesions, or other NEUROLOGIC: See HPI PSYCHIATRIC: No concerning psychosocial issues. 12 point review of systems is negative except for those stated above Patient History Medical History Atrial fibrillation Essential tremor Glaucoma History of COVID-19 (07/2022) HLD (hyperlipidemia) Hypertension Skin cancer Sleep apnea TIA (transient ischemic attack) Surgical History History of tonsillectomy Hx of bilateral cataract extraction (05/2023) Hx of hernia repair (11/11/22) Hx of left inguinal hernia repair (09/09/21) Family History Mother Cancer Father No pertinent past medical history Social History household members: spouse Smoking Status: Never smoker alcohol intake: former Smoking Status: Never smoker alcohol intake frequency: other Substance Use Type: does not use Exam Narrative Exam Narrative: GENERAL: [78] year old patient appears stated age. Well-developed patient, in mild distress. HEAD: Atraumatic. Normocephalic. EYES: Pupils equal round and reactive. Extraocular motions intact. No scleral icterus. No injection or drainage. ENT: Nose without bleeding, purulent drainage. Throat without erythema, tonsillar hypertrophy or exudate. Airway patent. NECK: Trachea midline. Non tender CARDIOVASCULAR: Regular rate and rhythm without murmurs, gallops, or rubs. RESPIRATORY: Clear to auscultation. Breath sounds equal bilaterally. No wheezes, rales, or rhonchi. GASTROINTESTINAL: Abdomen soft, non-tender, nondistended. EXTREMITIES: No edema or joint tenderness. BACK: Nontender without deformity or crepitance. No flank tenderness. NEURO: AOx3. Cranial nerves 2-12 grossly intact SKIN: No rash or erythema of visible areas Scores NIH Stroke Scale Level of Conciousness: Alert, keenly responsive Ask month/age: Answers both questions correctly. Open/close eyes, close hand: Performs both tasks correctly Best gaze horizontal: Normal Visual monaco: No visual loss Facial palsy: Normal symetrical movement Left arm drift: No drift for full 10 sec Right arm drift: No drift for full 10 sec Left leg drift: No drift for full 5 sec Right leg drift: No drift for full 5 sec Limb ataxia: Absent Sensory on face/arms/legs: Normal, no sensory loss Best language: Severe aphasia, not much is understood, fragmented Dysarthria: Normal Extinction or inattention: No abnormality Total NIH Stroke scale score: 2 MDM - Neuro Symptoms/Deficit MDM Narrative Medical decision making narrative: [78] year old patient presents with 90 minutes of expressive aphasia possible blurring of vision and dizziness Multiple etiologies for patient's symptoms considered including, but not limited to: [Stroke versus TIA versus other] Prior Charts reviewed in our EMR Primary Historian: patient Consultations: receiving physician in ED at [facility] Patient with multiple risk factors presents with a sudden onset of neurologic symptoms 90 minutes prior to his arrival. He is activated as code stroke but due to an active internal disaster and our inability to perform imaging, timely Labs, access EMR or telestroke the decision was made to STAT transfer patient to closest appropriate facility. Patient and family understand the potential diagnosis and plan. We are all extremely thankful to [facility] and their willingness to participate in the care of Mr. Keen Discharge Plan Departure Patient Disposition: [facility] Clinical Impression: Stroke Prescriptions: No Action losartan 50 mg tablet 50 mg PO DAILY diltiazem HCl 240 mg capsule,extended release 24hr 240 mg PO DAILY simvastatin 20 mg tablet 20 mg PO BEDTIME timolol 0.5 % Drops 1 drp OPHTHALMIC (EYE) BID tamsulosin 0.4 mg capsule 0.4 mg PO DAILY Qty: 14 0RF dabigatran etexilate [Pradaxa] 150 mg capsule 150 mg PO DAILY acetaminophen [Tylenol] 325 mg capsule 650 mg PO QID PRN (Reason: pain) Qty: 60 0RF
== END 2023-08-21 14:38 | disposition short-term general hospital (02) ==
LOC: ED 08-25 13:38
PROVIDERS: Emergency Provider Emergency Medicine; PCP Family Medicine
DX: I63.9 Cerebral infarction, unspecified (principal); R29.702 NIHSS score 2

== ENCOUNTER 2023-12-01 09:22 | Day surgery (SDC) | payer MEDICARE, OTHER, SELFPAY ==
[2023-07-08 14:59] VITALS: BMI 25.1
[2023-11-25 08:42] VITALS: BMI 26.8
--- NOTE | 2023-11-30 08:45 | PM.PREOP ---
Pre-operative Note Interval Note History & Physical reviewed/Exam performed by Physician: Yes Changes to H&P: No
[2023-12-01 10:17] VITALS: BMI 25.8
[2023-12-01] MEDS: LACTATED RINGERS 1,000 ML 21 ML IV (10:22)
[2023-12-01 10:48] VITALS: BP 124/86; PULSE 54; RESP 16; TEMP 36.7; O2SAT 100
[2023-12-01] MEDS: CEFAZOLIN 2 GM/100 ML PREMIX 100 ML IV (11:20)
--- NOTE | 2023-12-01 11:30 | SUR.OPER ---
Supine on padded OR bed, head on pillow, arms secured on padded arm boards at <90 degrees abduction, legs uncrossed, safety belt at thigh, tape over blanket over lower legs.
[2023-12-01] MEDS: BUPIVACAINE 0.25% (PF) VIAL 30 ML INJ (11:36)
[2023-12-01 12:44] VITALS: BP 117/77; PULSE 50; RESP 11; TEMP 36.3; O2SAT 99
--- NOTE | 2023-12-01 12:47 | P.OP_ITS ---
Operative Date/Time/Diagnoses Date of procedure: 12/01/23 Time of procedure: 12:47 Pre-op diagnosis: Right inguinal hernia Post-op diagnosis: same Procedure & Clinicians Procedure: Open right inguinal hernia repair mesh Same procedure as scheduled: Yes Indications: Symptomatic reducible right inguinal hernia Surgeon: Erwin Vargas Yes if Unassisted: Yes Anesthesia Type: General Operative Notes Findings: Moderate-sized indirect defect. No direct floor defect. Estimated Blood Loss (mL): 20 Procedure in detail: The patient was placed supine on the table and bilateral lower extremity compression devices were applied. Anesthesia was induced they were intubated with an LMA and received Ancef. A time-out was performed. They were prepped and draped in sterile fashion. The right external inguinal ring and the anterior superior iliac crest were identified and marked. 1 finger breath above the inguinal ligament the skin was infiltrated with 0.25% bupivacaine. The skin incision was made, the subcutaneous tissues were divided with electrocautery exposing the external oblique aponeurosis which was then opened along the direction of its fibers. Using blunt dissection the internal oblique aporneurosis was from the external oblique upper leaflet. The cord was carefully dissected away from the inguinal canal adjacent to the pubic tubercle. The cord including the vas deferens, testicular bloody supply, ilioguinal and genital nerve were encircled with a Keagan drain. No direct floor defect was identified. The cremasteric fibers surrounding the cord were divided adjacent to the internal ring. The vas deferens and the testicular vessels were preserved and protected. The cord contents were carefully explored. There was a moderate-sized indirect hernia on the anterior medial aspect of the cord which was skeletonized away from the vas deferens and testicular blood supply. The indirect hernia was skeletonized back to the internal ring and reduced spontaneously into the abdomen. A 7x 15 cm lightweight Bard Pro Loop hernia mesh was anchored to the insertion of the rectus muscle at the pubic tubercle such that there was approximately 2 cm of tubercle overlap with Ethibond. The inferior edge of the mesh was secured to the shelving edge of the inguinal ligament using Ethibond. Interrupted 3 0 Vicryl suture was used to anchor the superior aspect of the mesh to the conjoined tendon in several places. The tails were then reapproximated loosely around the spermatic cord. The tails of the mesh were then tucked under the external oblique aponeurosis. The repair was checked for hemostasis. The wound was irrigated with sterile saline. The external oblique aponeurosis was reapp roximated in a running fashion using 3 0 Vicryl. The subcutaneous tissues were reapproximated with 3 0 Vicryl skin closed with 4 0 Monocryl followed by the application of Dermabond. At the end of the operation I ensured that both testicles were within the scrotum. The sponge instrument count at the end operation was correct. The patient emerged from anesthesia was extubated and transferred to the postoperative care unit in stable condition. A total of 30 ml of of 0.25% bupivicaine was used to infiltrate the skin. Complications: none Post-operative Condition: stable Disposition: same day surgery
[2023-12-01 12:50] VITALS: BP 102/72; PULSE 52; RESP 12; TEMP 36.3; O2SAT 99
[2023-12-01 12:53] VITALS: BP 109/69; PULSE 51; RESP 12; TEMP 36.2; O2SAT 98
[2023-12-01 12:58] VITALS: BP 119/72; PULSE 48; RESP 11; TEMP 36.2; O2SAT 99
== END 2023-12-01 13:13 | disposition home or self-care (01) ==
PROVIDERS: PCP Family Medicine; Referring Provider Surgery; Visit Provider Surgery
PROC: (CPT 49505; principal; 2023-12-01 10:45)
DX: K40.90 Unilateral inguinal hernia, without obstruction or gangrene, not specified as recurrent (principal); I48.91 Unspecified atrial fibrillation; Z79.01 Long term (current) use of anticoagulants
CPT/HCPCS: 49505; 82962; 93005; J0690; J1100; J1885; J2405; J2704; J3010

== ENCOUNTER 2023-12-09 10:17 | Emergency (ER) | payer MEDICARE, OTHER, SELFPAY ==
[2023-07-08 14:59] VITALS: BMI 25.1
[2023-12-09 10:22] VITALS: BP 149/86; PULSE 73; RESP 14; TEMP 36.5; O2SAT 99; BMI 28.1
[2023-12-09] MEDS: LIDOCAINE 2% (GLYDO) 6 ML GEL TOP (11:49)
[2023-12-09 12:26] LABS: Appearance Urine UA CLEAR; Bilirubin Urine UA NEGATIVE (NEGATIVE); Color Urine UA YELLOW; Glucose Urine UA NEGATIVE (Negative); Ketones Urine UA NEGATIVE (NEGATIVE); Leukocyte Esterase Urine UA NEGATIVE (NEGATIVE); Nitrite Urine UA NEGATIVE (Negative); Occult Blood Urine UA 2+ (Negative); Protein Urine UA NEGATIVE (Negative); Urobilinogen Urine UA 0.2 E.U./dL (0.2); pH Urine UA 5.5 (4.5-8.0)
[2023-12-09 12:40] LABS: RBC Urine 10-30/HPF (0-5/HPF); WBC Urine 0-1/HPF (0-5/HPF)
[2023-12-09 12:41] LABS: Bacteria Urine None Seen; Calcium Oxalate Crystals Urine Occasional; Culture Indicated Urine Cult Not Indicated; Squamous Epithelial Cell Urine 0-1 /HPF (0-5/HPF)
--- NOTE | 2023-12-09 12:57 | ED.MALEGU ---
HPI - Male Genitourinary General Chief complaint: Urogenital-Male Stated complaint: having trouble urinating off on couple wks Time Seen by Provider: 12/09/23 12:39 Source: patient Mode of arrival: Ambulatory Limitations: no limitations History of Present Illness HPI Narrative: 78-year-old male history of atrial fibrillation on Pradaxa, suspected Parkinson's disease, hypertension dyslipidemia with recent right inguinal hernia repair December 01 patient states immediately afterwards he could not urinate had a catheter placed has been in place for approximately week and was removed yesterday. Patient states he was not able to urinate yesterday afterwards but was discharged home. He states he has not really been able to pee since then. Was quite uncomfortable with abdominal pain. Catheter has been placed he feels much improved. He states similar episode happened when he had knee surgery in the past could not urinate had a catheter in place. Does note that he has been constipated recently he has had bowel movements since his surgery. He has not taking any narcotics currently. Patient states no fevers or chills. No back or flank pain. Patient is currently on tamsulosin. He does note he was started on carbidopa levodopa for Parkinson's in October. Related Data Home Medications Medication Instructions Recorded Confirmed diltiazem HCl 240 mg 240 mg PO DAILY 07/08/21 12/01/23 capsule,extended release 24 hr dabigatran etexilate 150 mg 150 mg PO DAILY 07/14/21 11/30/23 capsule (Pradaxa) timolol 0.5 % eye drops 1 drp ophthalmic (eye) BID 07/01/23 12/01/23 atorvastatin 80 mg tablet 80 mg PO DAILY 11/04/23 12/01/23 losartan 50 mg tablet 100 mg PO DAILY 11/04/23 12/01/23 aspirin 81 mg chewable tablet 1 tab PO DAILY 11/30/23 11/30/23 carbidopa 25 mg-levodopa 100 mg 1 tab PO 3XD 11/30/23 12/01/23 tablet Previous Rx's Medication Instructions Recorded acetaminophen 325 mg capsule 650 mg (2 x 325 mg) PO QID PRN 12/01/23 (Tylenol) pain #60 caps tamsulosin 0.4 mg capsule (Flomax) 0.8 mg (2 x 0.4 mg) PO DAILY #28 12/02/23 caps Allergies Allergy/AdvReac Type Severity Reaction Status Date / Time lisinopril AdvReac Mild Cough Verified 12/09/23 10:27 Review of Systems Review of Systems ROS Unobtainable: All systems reviewed & are unremarkable except as noted in HPI and below Patient History Medical History Glaucoma History of COVID-19 (07/2022) Skin cancer Sleep apnea Essential tremor HLD (hyperlipidemia) TIA (transient ischemic attack) Atrial fibrillation Hypertension Surgical History 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) Hx of bilateral cataract extraction (05/2023) Hx of hernia repair (11/11/22) Hx of left inguinal hernia repair (09/09/21) History of tonsillectomy Family History Mother Cancer Father No pertinent past medical history Social History household members: spouse Smoking Status: Never smoker alcohol intake: former Smoking Status: Never smoker alcohol intake frequency: other Substance Use Type: does not use Exam Narrative Exam Narrative: GENERAL: Alert and oriented x three, male in mild distress HEENT: Head normocephalic, atraumatic, EOMI, pupils reactive, face symmetric, moist mucous membranes NECK: Supple, full range of motion CARDIOVASCULAR: Regular rate and rhythm without murmurs, rubs or gallops. RESPIRATORY: Breath sounds equal bilaterally, no wheezes rales or rhonchi. ABDOMEN: Soft, nontender. Normoactive bowel sounds all 4 quadrants. No guarding or rebound, rigidity, no mass : No CVA tenderness, Male: normal external examination, no penile discharge or lesions, testicles non-tender, cremasteric reflex intact, no inguinal hernias noted. Patient has Acosta catheter in place with clear yellow urine. EXTREMITIES: Normal range of motion, no clubbing or edema. Neurovascularly intact NEUROLOGICAL: Cranial nerves II through XII grossly intact. Moving all extremities SKIN: Warm, dry, no petechiae, no rashes or lesions. Initial Vital Signs Initial Vital Signs: Vital Signs Temperature 97.7 F 12/09/23 10:22 Pulse Rate 73 01/11/24 10:22 Respiratory Rate 14 12/09/23 10:22 Blood Pressure 149/86 H 12/09/23 10:22 Pulse Oximetry 99 12/09/23 10:22 Oxygen Delivery Method Room Air 12/09/23 10:22 Course Orders Ordered: ED Orders 12/09/23 12:20 Urinalysis and Microscopic Stat Discontinued Medications Lidocaine HCl (Lidocaine 2% (Glydo) 6 Ml Gel) 6 ml TOP NOW ONE Stop: 12/09/23 11:46 Last Admin: 12/09/23 11:49 Dose: 6 ml Documented By: FITO Vital Signs Vital signs: Vital Signs - 8 hr 12/09/23 10:22 12/09/23 13:26 Temperature 97.7 F Pulse Rate 73 60 Respiratory Rate 14 Blood Pressure 149/86 H 137/91 H Pulse Oximetry 99 98 Oxygen Delivery Method Room Air Room Air MDM - Male Genitourinary Lab Data Labs: Lab Results 12/09/23 Range/Units 12:20 Urine Color Yellow Urine Appearance Clear Urine pH 5.5 (4.5-8.0) Ur Specific [employer] 1.020 (1.000-1.035) Urine Protein Negative (Negative) Urine Glucose (UA) Negative (Negative) g/dL Urine Ketones Negative (NEGATIVE) Urine Occult Blood 2+ H (Negative) Urine Nitrate Negative (Negative) Urine Bilirubin Negative (NEGATIVE) Urine Urobilinogen 0.2 (0.2) E.U./dL Ur Leukocyte Esterase Negative (NEGATIVE) Urine RBC 10-30/hpf H (0-5/HPF) Urine WBC 0-1/hpf (0-5/HPF) Ur Squamous Epith Cells 0-1 /hpf (0-5/HPF) Calcium Oxalate Crystal Occasional H Urine Bacteria None seen (None) Ur Culture Indicated? Cult not indicated MDM Narrative Medical decision making narrative: Patient had 1000 mL on bladder scan. Had catheter placed had over a 1200mL out. Patient feels much improved. He is currently on tamsulosin discussed with patient to continue this. Would also add a stool softener to help with having more regular bowel movements. Leave catheter in for additional week and follow up with Urology. UA was obtained, 2+ blood, 10-30 RBCs occasional calcium oxalate crystal but no nitrates, no leukocyte esterase or bacteria noted. Blood likely from catheterization. Patient has follow up in [address] Yu, told him to keep that appointment but go ahead and make an appointment follow up with Urology. He had similar issues once before discussed things that he can do to help prevent persistent retention and return precautions. Discharge Plan Departure Patient Disposition: Home Clinical Impression: Acute urinary retention Instructions: DI for Urinary Retention in Men Activity Restrictions/Additional Instructions: Follow up with Urology, please call for an appointment. Contact information is below. Continue your tamsulosin or Flomax daily. I would recommend taking a stool softener such as Colace 1-2 times daily and drinking plenty of fluids and high-fiber diet. Constipation does contribute to urinary retention. Please return for fevers new or worsening abdominal back or flank pain, if his catheter becomes blocked or is not draining, or other new or concerning changes. Prescriptions: No Action tamsulosin [Flomax] 0.4 mg capsule 0.8 mg PO DAILY Qty: 28 0RF atorvastatin 80 mg tablet 80 mg PO DAILY diltiazem HCl 240 mg capsule,extended release 24hr 240 mg PO DAILY losartan 50 mg tablet 100 mg PO DAILY timolol 0.5 % Drops 1 drp OPHTHALMIC (EYE) BID dabigatran etexilate [Pradaxa] 150 mg capsule 150 mg PO DAILY aspirin 81 mg tablet,chewable 1 tab PO DAILY carbidopa-levodopa 25-100 mg tablet 1 tab PO 3XD acetaminophen [Tylenol] 325 mg capsule 650 mg PO QID PRN (Reason: pain) Qty: 60 0RF Referrals: Jose Alejandro Ford MD [Physician] - Joel López MD [Primary Care Provider] - Stand Alone Forms: Patient Portal/API
[2023-12-09 13:26] VITALS: BP 137/91; PULSE 60; O2SAT 98
== END 2023-12-09 13:42 | disposition home or self-care (01) ==
PROVIDERS: Emergency Provider Emergency Medicine; PCP Family Medicine
DX: R33.8 Other retention of urine (principal); G20.A1 Parkinson's disease without dyskinesia, without mention of fluctuations; Z79.899 Other long term (current) drug therapy
CPT/HCPCS: 51798; 81001; 99283

== ENCOUNTER → 2024-01-11 15:34 | Outpatient (CLI) | payer MEDICARE, OTHER, SELFPAY ==
[2023-07-08 14:59] VITALS: BMI 25.1
[2024-01-11 17:46] LABS: Appearance Urine UA SL CLOUDY; Bilirubin Urine UA NEGATIVE (NEGATIVE); Color Urine UA YELLOW; Glucose Urine UA NEGATIVE (Negative); Ketones Urine UA NEGATIVE (NEGATIVE); Leukocyte Esterase Urine UA 2+ (NEGATIVE); Nitrite Urine UA POSITIVE (Negative); Occult Blood Urine UA 3+ (Negative); Protein Urine UA 1+ (Negative); Specific Gravity Urine UA 1.015 (1.000-1.035); Urobilinogen Urine UA 0.2 E.U./dL (0.2)
[2024-01-11 17:52] LABS: Bacteria Urine Many (>30); Culture Indicated Urine Specimen Cultured; RBC Urine 10-30/HPF (0-5/HPF); Squamous Epithelial Cell Urine None Seen (0-5/HPF); Urine Volume 10mL (spun); WBC Urine 10-30/HPF (0-5/HPF)
== END ==
PROVIDERS: PCP Family Medicine; Visit Provider Urology
DX: Z46.6 Encounter for fitting and adjustment of urinary device (principal); N40.1 Benign prostatic hyperplasia with lower urinary tract symptoms; R33.8 Other retention of urine; R39.9 Unspecified symptoms and signs involving the genitourinary system; K59.09 Other constipation
CPT/HCPCS: 51798; 81001; 87077; 87086; 87186; 99214

== ENCOUNTER → 2024-02-24 10:59 | Outpatient (CLI) | payer MEDICARE, OTHER, SELFPAY ==
[2023-07-08 14:59] VITALS: BMI 25.1
== END ==
PROVIDERS: PCP Family Medicine; Visit Provider Urology
DX: R39.9 Unspecified symptoms and signs involving the genitourinary system (principal); R33.9 Retention of urine, unspecified
CPT/HCPCS: 51798; 81002; 87086

== ENCOUNTER → 2024-06-15 11:29 | Outpatient (CLI) | payer MEDICARE, OTHER, SELFPAY ==
[2023-07-08 14:59] VITALS: BMI 25.1
--- NOTE | 2024-06-15 11:31 | DI.RAD.S_ITS ---
PROCEDURE: XR KUB INDICATIONS: Evaluate bladder calculi TECHNIQUE: One view of the abdomen acquired. COMPARISON: None. FINDINGS: Surgical changes and devices: None. Bowel: Bowel gas pattern is normal. Soft tissues: Small calcifications are noted in right lower pelvis and may represent phleboliths versus small bladder stone measures 2-3 mm in size. No abdominal calcifications are seen. Visualized solid organ contours appear normal in size. Bones: No suspicious bony lesions. IMPRESSION: Possible small bladder stone versus phleboliths in right lower pelvis as above. Dictated by: Reid Melendez M.D. on 06/15/2024 at 14:08 Approved by: Reid Melendez M.D. on 06/15/2024 at 14:13
== END ==
PROVIDERS: PCP Family Medicine; Referring Provider Urology; Visit Provider Urology
DX: N21.0 Calculus in bladder (principal)
CPT/HCPCS: 74018

== ENCOUNTER 2024-11-03 00:26 | Emergency (ER) | payer MEDICARE, OTHER, SELFPAY ==
[2023-07-08 14:59] VITALS: BMI 25.1
[2024-11-03] VITALS (7 sets, daily range): BP systolic 137–180; BP diastolic 69–93; PULSE 64–71; RESP 12–20; TEMP 36.6; O2SAT 96–98; BMI 27.6
--- NOTE | 2024-11-03 00:37 | DI.CT.S_ITS ---
PROCEDURE: CT HEAD/BRAIN WO CON INDICATIONS: Fall on thinners TECHNIQUE: Noncontrast 4.5 mm thick angled axial sections acquired from the foramen magnum to the vertex, with coronal and sagittal reformats. For radiation dose reduction, the following was used: automated exposure control, adjustment of mA and/or kV according to patient size. COMPARISON: [facility], CT, CT HEAD TPA, 09/10/2023, 15:21. FINDINGS: Image quality: Diagnostic. CSF spaces: Basal cisterns are patent. No extra-axial fluid collections. The ventricles are symmetric in size and shape. Brain: No intracranial bleeds or masses. There is cerebral volume loss for age, with resultant ventricular and sulcal prominence. There are periventricular and deep white matter chronic small vessel ischemic changes. There is intracranial internal carotid artery atherosclerosis. Skull and face: Small left frontal scalp hematoma without underlying fracture. Calvarium and visualized facial bones appear intact, without suspicious lesions. Sinuses: Visualized sinuses and mastoids are clear. IMPRESSION: No acute intracranial pathology. Dictated by: Jeff Mc M.D. on 11/03/2024 at 1:26 Approved by: Jeff Mc M.D. on 11/03/2024 at 1:29
--- NOTE | 2024-11-03 00:37 | DI.CT.S_ITS ---
PROCEDURE: CT CERVICAL SPINE WO CON INDICATIONS: Fall on thinners TECHNIQUE: Noncontrast 3 mm thick sections acquired from the skull base to the T4 level. Sagittal and coronal reformats were then constructed. For radiation dose reduction, the following was used: automated exposure control, adjustment of mA and/or kV according to patient size. COMPARISON: None. FINDINGS: Image quality: Excellent. Bones: No fractures or dislocations. Severe degenerative changes of the cervical spine. Decreased osseous mineralization. Visualized superior ribs are intact. Soft tissues: Prevertebral soft tissues are normal in thickness. No paravertebral hematomas. No apical pneumothoraces. IMPRESSION: No displaced fracture or traumatic subluxation. Dictated by: Jeff Mc M.D. on 11/03/2024 at 1:29 Approved by: Jeff Mc M.D. on 11/03/2024 at 1:31
--- NOTE | 2024-11-03 00:55 | ED.GENADULT ---
HPI - General Adult General Chief complaint: Trauma Stated complaint: TIA, fell on concrete and hit head, on thinners Time Seen by Provider: 11/03/24 00:28 Source: patient and family Mode of arrival: Ambulatory History of Present Illness HPI narrative: Patient is a 79-year-old male. Has a history of Parkinson's disease. Is on Pradaxa. Is here for evaluation of a syncopal episode/head injury. He is here with his . This evening approximately 2 hours prior to arrival here in the emergency department the patient was in his normal state of health. It was unwitnessed however patient's states they have a house guest who found the patient lying outside on the concrete. Patient was not remember the event. Apparently he went to let the dog out but unsure exactly how he fell. No extremity injuries except for some abrasions on his left arm. He does not remember what happened although he knows where he was now. He did not take his evening dose of carbidopa/levodopa. Related Data Home Medications Medication Instructions Recorded Confirmed diltiazem HCl 240 mg 240 mg PO DAILY 07/08/21 06/15/24 capsule,extended release 24 hr dabigatran etexilate 150 mg 150 mg PO DAILY 07/14/21 06/15/24 capsule (Pradaxa) timolol 0.5 % eye drops 1 drp ophthalmic (eye) BID 07/01/23 06/15/24 atorvastatin 80 mg tablet 80 mg PO DAILY 11/04/23 06/15/24 losartan 50 mg tablet 100 mg PO DAILY 11/04/23 06/15/24 carbidopa 25 mg-levodopa 100 mg 1 tab PO 3XD 11/30/23 06/15/24 tablet Previous Rx's Medication Instructions Recorded acetaminophen 325 mg capsule 650 mg (2 x 325 mg) PO QID PRN 12/01/23 (Tylenol) pain #60 caps tamsulosin 0.4 mg capsule 0.8 mg (2 x 0.4 mg) PO DAILY #60 06/15/24 caps Allergies Allergy/AdvReac Type Severity Reaction Status Date / Time lisinopril AdvReac Mild Cough Verified 06/15/24 13:05 Review of Systems Review of Systems ROS Unobtainable: All systems reviewed & are unremarkable except as noted in HPI and below Patient History Medical History History of bladder stone History of urinary retention Incomplete emptying of bladder Bladder calculi Constipation Benign prostatic hyperplasia Lower urinary tract symptoms Urinary retention Glaucoma History of COVID-19 (07/2022) Skin cancer Sleep apnea Essential tremor HLD (hyperlipidemia) TIA (transient ischemic attack) Atrial fibrillation Hypertension Surgical History 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) Hx of bilateral cataract extraction (05/2023) Hx of hernia repair (11/11/22) Hx of left inguinal hernia repair (09/09/21) History of tonsillectomy Family History Mother Cancer Father No pertinent past medical history Social History household members: spouse Smoking Status: Never smoker alcohol intake: former Smoking Status: Never smoker alcohol intake frequency: other Exam Initial Vital Signs Initial Vital Signs: Vital Signs Pulse Rate 69 11/03/24 00:35 Pulse Oximetry 97 11/03/24 00:35 HENMT Head: abrasion (Left forehead) Nose: external nose normal Face and sinus: normal facial exam Mouth: oral mucosae normal Eyes General: Yes appearance normal, both eyes and all related structures Resp Effort & Inspection: normal respiratory effort Cardio Rate: regular rate Skin Other: Abrasions above left eye and over left forehead. Abrasions on his left shoulder left elbow and on the back of his left hand. Neuro Other: Patient was alert to person and place but not necessarily situation. Extrem Other: Bilateral lower extremities unremarkable. Pelvis is unremarkable. Full range motion of the left wrist left elbow and left shoulder. Course Orders Ordered: ED Orders 11/03/24 00:37 CT cervical spine wo con Stat CT head/brain wo con Stat 11/03/24 00:49 Complete Blood Count AUTO DIFF Stat Comprehensive Metabolic Panel Stat Ethanol (ETOH) Stat Lipase Stat Discontinued Medications Acetaminophen (Acetaminophen 325 Mg Tablet) 975 mg PO NOW ONE Stop: 11/03/24 02:15 Last Admin: 11/03/24 02:18 Dose: 975 mg Documented By: PHU Bacitracin (Bacitracin Oint 0.9 Gm Pckt) 1 applic TOP NOW ONE Stop: 11/03/24 01:36 Last Admin: 11/03/24 02:11 Dose: 1 applic Documented By: PHU Carbidopa/Levodopa (Carbidopa-Levodopa 25/100 Tablet) 1 each PO NOW ONE Stop: 11/03/24 00:56 Last Admin: 11/03/24 02:10 Dose: 1 each Documented By: PHU Vital Signs Vital signs: Vital Signs - 8 hr 11/03/24 00:35 11/03/24 00:36 11/03/24 00:36 Temperature Pulse Rate 69 71 Respiratory Rate Blood Pressure 180/93 H Pulse Oximetry 97 97 Oxygen Delivery Method 11/03/24 00:38 11/03/24 01:08 11/03/24 01:21 Temperature 97.9 F Pulse Rate 66 Respiratory Rate 20 18 Blood Pressure 180/93 H 148/69 H Pulse Oximetry 98 97 Oxygen Delivery Method Room Air Room Air 11/03/24 01:21 11/03/24 01:30 11/03/24 01:30 Temperature Pulse Rate 67 70 Respiratory Rate 14 12 Blood Pressure 137/75 Pulse Oximetry 96 96 Oxygen Delivery Method 11/03/24 02:00 11/03/24 02:00 Temperature Pulse Rate 64 Respiratory Rate 16 Blood Pressure 163/84 H Pulse Oximetry 96 Oxygen Delivery Method Room Air Medical Decision Making Lab Data Lab results reviewed: Yes I reviewed the patient's lab results. 11/03/24 00:49 11/03/24 00:49 Labs: Lab Results 11/03/24 Range/Units 00:49 WBC 7.2 (4.5-11.0) X10^3/uL RBC 4.76 (4.5-5.9) X10^6/uL Hgb 14.7 (13.5-17.5) g/dL Hct 43.3 (41-53) % MCV 90.9 (80-100) fL MCH 30.9 (26-34) PG MCHC 34.0 (30-36) % RDW 14.1 (11.6-14.8) % Plt Count 236 (150-400) X10^3/uL Neut % (Auto) 53.6 (50-75) % Lymph % (Auto) 33.3 (25-40) % [place] % (Auto) 8.2 (3-14) % Eos % (Auto) 4.5 H (2-4) % Baso % (Auto) 0.4 (0-2) % Neut # (Auto) 3900 (7725-7845) /uL Lymph # (Auto) 2400 (0194-4707) /uL [place] # (Auto) 600 (0-900) /uL Eos # (Auto) 300 (0-450) /uL Baso # (Auto) 0 (0-100) /uL Sodium 137 (137-145) mmol/L Potassium 3.7 (3.4-5.1) mmol/L Chloride 108 H (98-107) mmol/L Carbon Dioxide 23 (22-32) mmol/L BUN 27 H (9-20) mg/dL Creatinine 1.23 (0.66-1.25) mg/dL Estimated GFR 60 (>60) mL/min BUN/Creatinine Ratio 22.0 (6-22) Glucose 169 H (80-110) mg/dL Calcium 9.3 (8.4-10.2) mg/dL Total Bilirubin 0.7 (0.2-1.3) mg/dL AST 28 (17-59) IU/L ALT 23 (<50) IU/L Alkaline Phosphatase 158 H (38-126) U/L Total Protein 6.9 (6.3-8.2) g/dL Albumin 4.1 (3.5-5.0) g/dL Globulin 2.8 (1.7-4.1) g/dL Albumin/Globulin Ratio 1.5 (1.0-2.8) Lipase 152 (23-300) U/L Imaging Data CT scan - head: Radiologist's Impression: PROCEDURE: CT HEAD/BRAIN WO CON INDICATIONS: Fall on thinners TECHNIQUE: Noncontrast 4.5 mm thick angled axial sections acquired from the foramen magnum to the vertex, with coronal and sagittal reformats. For radiation dose reduction, the following was used: automated exposure control, adjustment of mA and/or kV according to patient size. COMPARISON: Located Within [facility], CT, [facility], 09/10/2023, 15:21. FINDINGS: Image quality: Diagnostic. CSF spaces: Basal cisterns are patent. No extra-axial fluid collections. The ventricles are symmetric in size and shape. Brain: No intracranial bleeds or masses. There is cerebral volume loss for age, with resultant ventricular and sulcal prominence. There are periventricular and deep white matter chronic small vessel ischemic changes. There is intracranial internal carotid artery atherosclerosis. Skull and face: Small left frontal scalp hematoma without underlying fracture. Calvarium and visualized facial bones appear intact, without suspicious lesions. Sinuses: Visualized sinuses and mastoids are clear. IMPRESSION: No acute intracranial pathology. CT - cervical spine: Radiologist's Impression: PROCEDURE: CT CERVICAL SPINE WO CON INDICATIONS: Fall on thinners TECHNIQUE: Noncontrast 3 mm thick sections acquired from the skull base to the T4 level. Sagittal and coronal reformats were then constructed. For radiation dose reduction, the following was used: automated exposure control, adjustment of mA and/or kV according to patient size. COMPARISON: None. FINDINGS: Image quality: Excellent. Bones: No fractures or dislocations. Severe degenerative changes of the cervical spine. Decreased osseous mineralization. Visualized superior ribs are intact. Soft tissues: Prevertebral soft tissues are normal in thickness. No paravertebral hematomas. No apical pneumothoraces. IMPRESSION: No displaced fracture or traumatic subluxation. MDM Narrative Medical decision making narrative: Labs are unremarkable. CT scan of head and cervical spine unremarkable. During his time here he states that he is starting to remember somewhat as to what happened. He states that he tried to lean for the railing but missed the railing and fell. I do feel we can hold on other radiologic studies for now as he was not having any extremity injuries. Labs unremarkable. Will discharge patient home with return precautions and follow-up instructions. He expressed understanding and agreement with plan. Discharge Plan Departure Patient Disposition: Home Clinical Impression: Abrasion of skin, Parkinson's disease Instructions: Concussion, How to Prevent Falls Activity Restrictions/Additional Instructions: You have no restrictions on your activities. You can take Tylenol for any headache. You can shower like normal. Topical antibiotic ointment such as Neosporin or bacitracin over the abrasions. Return to the emergency department for new or worsening symptoms. Prescriptions: No Action atorvastatin 80 mg tablet 80 mg PO DAILY diltiazem HCl 240 mg capsule,extended release 24hr 240 mg PO DAILY losartan 50 mg tablet 100 mg PO DAILY timolol 0.5 % Drops 1 drp OPHTHALMIC (EYE) BID dabigatran etexilate [Pradaxa] 150 mg capsule 150 mg PO DAILY carbidopa-levodopa 25-100 mg tablet 1 tab PO 3XD acetaminophen [Tylenol] 325 mg capsule 650 mg PO QID PRN (Reason: pain) Qty: 60 0RF tamsulosin 0.4 mg capsule 0.8 mg PO DAILY Qty: 60 12RF Referrals: Joel López MD [Primary Care Provider] - Stand Alone Forms: Patient Portal/API/Survey
[2024-11-03 00:59] LABS: Add Manual Diff / Slide Review NO; Basophils Absolute Auto 0 /uL (0-100); Basophils Percent Auto 0.4 % (0-2); Eosinophils Absolute Auto 300 /uL (0-450); Eosinophils Percent Auto 4.5 % (2-4); Hematocrit 43.3 % (41-53); Hemoglobin 14.7 g/dL (13.5-17.5); Lymphocytes Absolute Auto 2400 /uL (1100-4500); Lymphocytes Percent Auto 33.3 % (25-40); Mean Corpuscular Hemoglobin 30.9 PG (26-34); Mean Corpuscular Volume 90.9 fL (80-100); Monocytes Absolute Auto 600 /uL (0-900); Monocytes Percent Auto 8.2 % (3-14); Neutrophils Absolute Auto 3900 /uL (1500-7000); Neutrophils Percent Auto 53.6 % (50-75); Platelet Count 236 X10^3/uL (150-400); Red Blood Cell Count 4.76 X10^6/uL (4.5-5.9); Red Cell Distribution Width 14.1 % (11.6-14.8); White Blood Cell Count 7.2 X10^3/uL (4.5-11.0)
[2024-11-03 01:14] LABS: Alanine Aminotransferase 23 IU/L (<50); Albumin 4.1 g/dL (3.5-5.0); Albumin Globulin Ratio 1.5 (1.0-2.8); Alkaline Phosphatase 158 U/L (38-126); Aspartate Aminotransferase 28 IU/L (17-59); Bilirubin Total 0.7 mg/dL (0.2-1.3); Blood Urea Nitrogen 27 mg/dL (9-20); Calcium 9.3 mg/dL (8.4-10.2); Carbon Dioxide 23 mmol/L (22-32); Chloride 108 mmol/L (98-107); Estimated Glomerular Filt Rate 60 mL/min (>60); Globulin 2.8 g/dL (1.7-4.1); Glucose 169 mg/dL (80-110); HEMOLYSIS 34 (0-50); Lipase 152 U/L (23-300); Potassium 3.7 mmol/L (3.4-5.1); Sodium 137 mmol/L (137-145); Total Protein 6.9 g/dL (6.3-8.2)
[2024-11-03] MEDS: CARBIDOPA-LEVODOPA 25/100 TABLET 1 EACH PO (02:10)
[2024-11-03] MEDS: BACITRACIN OINT 0.9 GM PCKT 1 APPLIC TOP (02:11)
[2024-11-03] MEDS: ACETAMINOPHEN 325 MG TABLET 975 MG PO (02:18)
[2024-11-03 03:40] LABS: Ethanol (ETOH) < 10 mg/dL
== END 2024-11-03 02:34 | disposition home or self-care (01) ==
PROVIDERS: Emergency Provider Emergency Medicine; PCP Family Medicine
DX: S40.812A Abrasion of left upper arm, initial encounter (principal); G20.A1 Parkinson's disease without dyskinesia, without mention of fluctuations; R55 Syncope and collapse; R42 Dizziness and giddiness; S09.90XA Unspecified injury of head, initial encounter; W19.XXXA Unspecified fall, initial encounter; Z79.01 Long term (current) use of anticoagulants
CPT/HCPCS: 36415; 70450; 72125; 80053; 80320; 83690; 85025; 99284

== ENCOUNTER → 2024-12-26 12:47 | Outpatient (CLI) | payer MEDICARE, OTHER, SELFPAY ==
[2023-07-08 14:59] VITALS: BMI 25.1
--- NOTE | 2024-12-26 12:49 | DI.RAD.S_ITS ---
PROCEDURE: XR KUB INDICATIONS: Rule out recurrent stones TECHNIQUE: One view of the abdomen acquired. COMPARISON: [facility], CR, XR KUB, 06/15/2024, 11:30. FINDINGS: Stool gas pattern: Normal-no evidence of ileus or obstruction. No free intraperitoneal or extraperitoneal air. No gross evidence of ascites Soft tissues: A 4-5 small calcifications in the true pelvic region several overlies the expected location of the distal ureters. All of these are less than 6 mm. . Organs: No gross evidence for organomegaly. IMPRESSION: Multiple small pelvic calcifications. While most, if not all, l of these likely represent phleboliths and other benign calcifications ,one or more could potentially represent distal ureteral stones. Consider CT , if there is clinical suspicion Dictated by: Ramón Orozco M.D. on 12/27/2024 at 10:40 Approved by: Ramón Orozco M.D. on 12/27/2024 at 10:42
== END ==
PROVIDERS: PCP Family Medicine; Referring Provider Urology; Visit Provider Urology
DX: N40.1 Benign prostatic hyperplasia with lower urinary tract symptoms (principal); N13.8 Other obstructive and reflux uropathy; K59.09 Other constipation; Z87.442 Personal history of urinary calculi; Z87.448 Personal history of other diseases of urinary system; Z87.898 Personal history of other specified conditions
CPT/HCPCS: 51741; 51798; 74018; 81002; 99214